=== PATIENT | male | born 1990 | race Caucasian/White ===

== ENCOUNTER 2017-01-08 21:51 | Emergency (ER) | payer OTHER ==
[~2017-01-08] VITALS: Ht 154.9 cm; Wt 68.0 kg
[~2017-01-08 21:51] MED LIST: AMPH15CA7 PO; AMPH20CA3 PO; NXM/40 PO
[2017-01-08 21:55] VITALS: TEMP 36.8; Ht 154.9 cm; Wt 68.0 kg
[2017-01-08] MEDS ORDERED: OPTIRAY 320 IV PRN (22:30)
[2017-01-08 22:40] LABS: BASO % 0.1 %; BASO ABS # 0.02 K/uL (0-0.2); COMPLETE YES; EOS % 0.3 %; HEMATOCRIT 46.6 % (42-52); IG% 0.3 %; LYMPH % 29.4 %; LYMPH ABS # 4.21 K/uL (1.2-3.4); MEAN CELL VOLUME 85.5 fL (80-100); MEAN CORPUSCULAR HEMOGLOBIN 28.8 pg (25-34); MEAN CORPUSCULAR HGB CONC 33.7 g/dl (32-36); MEAN PLATELET VOLUME 9.5 fL (7.4-10.4); MONO % 5.4 %; NEUT % 64.5 %; PLATELET COUNT 254 K/uL (130-400); RED BLOOD COUNT 5.45 M/uL (4.7-6.1); WHITE BLOOD COUNT 14.33 K/uL (4.8-10.8)
[2017-01-08] MEDS ORDERED: PRT/20 PO (22:41)
[2017-01-08 22:54] LABS: PROTHROMBIN TIME (PATIENT) 10.3 SECONDS (9.0-12.0)
[2017-01-08 22:55] LABS: MANUAL MICROSCOPIC REQUIRED? NO; REVIEW REQ? NO; URINE APPEARANCE CLEAR (CLEAR); URINE BILIRUBIN NEG (NEG); URINE COLOR YELLOW; URINE EPITHELIAL CELL AUTO 0-5 /lpf (0-5); URINE NITRITE NEG (NEG); URINE SPECIFIC GRAVITY 1.024 (1.000-1.030); UROBILINOGEN NEG (NEG); ZZUR CULT IF INDIC CLEAN CATCH NO
[2017-01-08 23:04] LABS: ALKALINE PHOSPHATASE 55 U/L (45-117); ALT/SGPT 28 U/L (12-78); AST/SGOT 26 U/L (15-37); BLOOD UREA NITROGEN 19 mg/dl (7-18); CALCIUM 8.9 mg/dl (8.5-10.1); CARBON DIOXIDE 27 mmol/L (21-32); CHLORIDE 106 mmol/L (98-107); GLUCOSE 87 mg/dl (70-99); SODIUM 140 mmol/L (136-145)
[2017-01-09 00:49] VITALS: BP 117/83; PULSE 86; O2SAT 97
--- NOTE | 2017-01-09 01:03 | EMERGENCY ROOM VISIT NOTE ---
History First contact with patient: 22:11 Chief Complaint: GI ASSESSMENT Stated Complaint: ABD PAIN,BLOOD IN STOOL History of Present Illness The patient is a 26 year old male who presents to the Emergency Room with complaints of blood in the stool for this past week that has gotten progressively worse. Patient states every time his bowel movement he has a couple drops of blood that has gotten progressive worse. Patient states today he had a small clot size of blood. No black stool. Patient states he's had some cramping to the left lower quadrant. Currently 2 out of 10, nothing makes it better or worse. It does not radiate. Patient is a homosexual and does have anal intercourse. Nothing recently. Patient denies penile pain, testicular pain, urinary symptoms, fever, chills, nausea, vomiting, diarrhea, rashes. Review of Systems See HPI for pertinent positives & negatives. A total of 10 systems reviewed and were otherwise negative. Past Medical/Surgical History None Social History Smoking Status: Current Some Day Smoker Alcohol Use: occasionally Drug Use: none Marital Status: in relationship Occupation Status: [employer] student Current/Historical Medications Scheduled Amphetamine-Dextroamphetamine 15MG (Adderall Xr 15MG), 15 MG PO Q2D Amphetamine-Dextroamphetamine 20MG (Adderall Xr 20MG), 20 MG PO Q2D Pantoprazole (Protonix), 20 MG PO BID Physical Exam Vital Signs Date Time Temp Pulse Resp B/P (MAP) Pulse Ox O2 Delivery O2 Flow Rate FiO2 01/09/17 00:49 86 117/83 97 01/08/17 23:23 82 18 111/75 98 Room Air 01/08/17 21:55 36.8 95 16 123/62 98 Room Air Physical Exam VITALS: Vitals are noted on the nurse's note and reviewed by myself. Vital signs stable. GENERAL: Pleasant male, in no acute distress, nondiaphoretic, well-developed well-nourished. SKIN: The skin was without rashes, erythema, edema, or bruising. There is no tenting of the skin. Capillary reflex less than 2 seconds. HEAD: Normocephalic atraumatic. EARS: External auditory canals clear, tympanic membranes pearly allan without erythema or effusion bilaterally. EYES: Pupils equal round and reactive to light and accommodation. Conjunctivae without injection, sclerae without icterus. Extraocular movements intact. NOSE: Patent, turbinates without inflammation or discharge. MOUTH: Mucous membranes moist. Pharynx without erythema or exudate. Uvula midline. Airway patent. Tongue does not deviate. NECK: Supple without nuchal rigidity. No lymphadenopathy. No thyromegaly. Cervical spine is nontender. No JVD. HEART: Regular rate and rhythm without murmurs gallops or rubs. LUNGS: Clear to auscultation bilaterally without wheezes, rales or rhonchi. No dullness to percussion. No retractions or accessory muscle use. ABDOMEN: Positive bowel sounds x 4. Normal tympanic percussion. Soft, tender to palpation left lower quadrant, no CVA tenderness, without masses or organomegaly. Lewis sign negative. No guarding or rebound tenderness. Rectal exam: Small hemorrhoid that is nonthrombosed at 7:00, no fissures or tears, bright red blood in the vault with no pain on rectal exam. Market Development Director present. MUSCULOSKELETAL: No muscle atrophy, erythema, or edema noted. NEURO: Patient was alert and oriented to person place and time. Normal sensation to light and sharp touch. No focal neurological deficits. Medical Decision & Procedures Laboratory Results 01/08/17 22:30 Red Blood Count 5.45, Mean Corpuscular Volume 85.5, Mean Corpuscular Hemoglobin 28.8, Mean Corpuscular Hemoglobin Concent 33.7, Mean Platelet Volume 9.5, Neutrophils (%) (Auto) 64.5, Lymphocytes (%) (Auto) 29.4, Monocytes (%) (Auto) 5.4, Eosinophils (%) (Auto) 0.3, Basophils (%) (Auto) 0.1, Neutrophils # (Auto) 9.24, Lymphocytes # (Auto) 4.21, Monocytes # (Auto) 0.77, Eosinophils # (Auto) 0.05, Basophils # (Auto) 0.02 01/08/17 22:30 Test 01/08/17 22:30 01/08/17 22:45 White Blood Count 14.33 K/uL (4.8-10.8) Red Blood Count 5.45 M/uL (4.7-6.1) Hemoglobin 15.7 g/dL (14.0-18.0) Hematocrit 46.6 % (42-52) Mean Corpuscular Volume 85.5 fL (80-100) Mean Corpuscular Hemoglobin 28.8 pg (25-34) Mean Corpuscular Hemoglobin Concent 33.7 g/dl (32-36) Platelet Count 254 K/uL (130-400) Mean Platelet Volume 9.5 fL (7.4-10.4) Neutrophils (%) (Auto) 64.5 % Lymphocytes (%) (Auto) 29.4 % Monocytes (%) (Auto) 5.4 % Eosinophils (%) (Auto) 0.3 % Basophils (%) (Auto) 0.1 % Neutrophils # (Auto) 9.24 K/uL (1.4-6.5) Lymphocytes # (Auto) 4.21 K/uL (1.2-3.4) Monocytes # (Auto) 0.77 K/uL (0.11-0.59) Eosinophils # (Auto) 0.05 K/uL (0-0.5) Basophils # (Auto) 0.02 K/uL (0-0.2) RDW Standard Deviation 41.0 fL (36.4-46.3) RDW Coefficient of Variation 13.1 % (11.5-14.5) Immature Granulocyte % (Auto) 0.3 % Immature Granulocyte # (Auto) 0.04 K/uL (0.00-0.02) Prothrombin Time 10.3 SECONDS (9.0-12.0) Prothromb Time International Ratio 1.0 (0.9-1.1) Activated Partial Thromboplast Time 25.6 SECONDS (21.0-31.0) Partial Thromboplastin Ratio 1.0 Anion Gap 7.0 mmol/L (3-11) Est Creatinine Clear Calc Drug Dose 82.8 ml/min Estimated GFR () 105.3 Estimated GFR (Non- 90.9 BUN/Creatinine Ratio 17.0 (10-20) Calcium Level 8.9 mg/dl (8.5-10.1) Total Bilirubin 0.7 mg/dl (0.2-1) Direct Bilirubin mg/dl (0-0.2) Aspartate Amino Transf (AST/SGOT) 26 U/L (15-37) Alanine Aminotransferase (ALT/SGPT) 28 U/L (12-78) Alkaline Phosphatase 55 U/L (45-117) Total Protein 7.5 gm/dl (6.4-8.2) Albumin 3.8 gm/dl (3.4-5.0) Chemistry Specimen Hemolysis Urine Color YELLOW Urine Appearance CLEAR (CLEAR) Urine pH 7.0 (4.5-7.5) Urine Specific [place] 1.024 (1.000-1.030) Urine Protein NEG (NEG) Urine Glucose (UA) NEG (NEG) Urine Ketones TRACE (NEG) Urine Occult Blood 1+ (NEG) Urine Nitrite NEG (NEG) Urine Bilirubin NEG (NEG) Urine Urobilinogen NEG (NEG) Urine Leukocyte Esterase NEG (NEG) Urine WBC (Auto) 0 /hpf (0-5) Urine RBC (Auto) 5-10 /hpf (0-4) Urine Hyaline Casts (Auto) 0 /lpf (0-5) Urine Epithelial Cells (Auto) 0-5 /lpf (0-5) Urine Bacteria (Auto) NEG (NEG) ED Course Prior records/ancillary studies reviewed. Triage Nursing notes reviewed. Additional history obtained from the friend. The patient's history was concerning for possible gastrointestinal bleeding. Differential diagnosis: Etiologies such as diverticulosis, rectal tear, AVM, coagulopathy, colitis, inflammatory bowel disease, malignancy, fissure, hemorrhoids, as well as others were entertained. Physical exam: As above. The patients vital signs were stable. ER treatment provided: Patient was observed On reassessment the patient felt better. Diagnostics interpreted by me: The labs revealed leukocytosis, stable H&H. Negative urine. Patient states he chronically has a mild leukocytosis. Imaging studies: CT ABDOMEN & PELVIS: No colitis. Appendix not identified. Heterogeneity with low attenuation area in the left side of the prostate. Radiologist: Carmelita Steinberg M.D. This appears to be consistent with rectal bleeding most likely from hemorrhoids. Patient was advised to follow-up with GI for further workup and also family care for his chronic mild leukocytosis. Patient was advised to avoid anal stimulation or anal intercourse until cleared by gastroenterology. He was advised to return to the ER immediately for heavy bleeding, black stool, fevers, worsening signs or symptoms or as needed. Patient was neurovascularly and neurologically intact. He did not have an acute abdomen on exam. He is well-appearing.. By the evaluation outlined above emergent etiologies such as esophageal perforation, peptic ulcer disease, variceal bleed, coagulopathy, gastritis, epistaxis, malignancy, inflammatory bowel disease, as well as others were deemed relatively unlikely. The pt informed about the findings as listed above. All questions were answered and pleased with the treatment. Return instructions were outlined and the patient was discharged in stable condition. Referral: The patient was referred to GI for follow-up in 2 to 3 days for a recheck of the current condition case reviewed with my Attending Medical Decision As above Medication Reconcilliation Current Medication List: was personally reviewed by me Blood Pressure Screening Patient's blood pressure: Normal blood pressure Impression Primary Impression: Rectal bleeding Departure Information Dispostion Home / Self-Care Condition GOOD Referrals Casandra Briggs, DO Forms HOME CARE DOCUMENTATION FORM, IMPORTANT VISIT INFORMATION Patient Instructions Bleeding Rectal, My Parabel Additional Instructions No rectal intercourse or anal stimulation until cleared by gastroenterology. Avoid straining when you go to the bathroom. Recommend no alcohol or tobacco use until cleared by gastroenterology. Rest and drink plenty of fluids as tolerated. Continue current medications. Avoid strenuous activities and anything that worsens your pain. Resume normal activities once your symptoms resolve. Return to the ER immediately for worsening or persistent rectal bleeding, black or heavy blood in the stool, abdominal pain, vomiting, fevers, chest pains, difficulty breathing, worsening of your condition, or as needed. Follow up with gastroenterology in 2-3 days for a recheck of your current condition. Call in the morning for an appointment.
--- NOTE | 2017-01-09 06:41 | DIAGNOSTIC IMAGING REPORT ---
CT ABD/PELVIS IV CONTRAST ONLY CLINICAL HISTORY: Left lower quadrant abdominal pain. Rectal bleeding. Anal intercourse. COMPARISON STUDY: None. TECHNIQUE: Following the IV administration of 91 mL of Optiray-320, CT scan of the abdomen and pelvis was performed from the lung bases to the proximal femurs. Images are reviewed in the axial, sagittal, and coronal planes. IV contrast was administered without complication. A dose lowering technique was utilized adhering to the principles of ALARA. CT DOSE: 266.10 mGy.cm FINDINGS: Lower chest: The heart is normal in size and configuration, without pericardial effusion. The lung bases and pleural spaces are clear. Liver: The contrast-enhanced liver is normal in size, contour, and attenuation. There is no intrahepatic biliary ductal dilatation. The hepatic veins and portal veins are patent. Gallbladder: Unremarkable. Spleen: Normal in size and attenuation. Pancreas: Unremarkable. Adrenal glands: Unremarkable. Kidneys: There is symmetric renal cortical enhancement. The kidneys are normal in size without hydronephrosis. Bowel: There are no transition zones indicate bowel obstruction. There is no evidence of acute diverticulitis. The appendix is not visualized with certainty. There are however no findings to indicate acute appendicitis. Peritoneum: There is no intraperitoneal free air or abdominal ascites. Vasculature: The abdominal aorta is normal in course and caliber. Adenopathy: None. Pelvic viscera: There is an area of diminished attenuation within the left side the prostate. This is nonspecific. A prostatitis could appear similar. Skeletal structures: No destructive osseous lesions are seen. IMPRESSION: 1. No evidence of bowel obstruction. No evidence of free air 2. Focus of diminished attenuation within the left aspect of the prostate. Clinical correlation in regards to prostatitis is recommended. 3. No evidence of acute diverticulitis. No evidence of acute appendicitis. Electronically signed by: Yuniel Mcgowan M.D. 01/09/2017 6:40 AM Dictated Date/Time: 01/09/2017 6:36 AM
== END 2017-01-09 00:51 | disposition home or self-care (01) ==
LOC: C.EDB 21:52 → C.EDA 01-09 00:51
DX: K62.5 Hemorrhage of anus and rectum (principal); F17.200 Nicotine dependence, unspecified, uncomplicated

== ENCOUNTER → 2017-06-24 | Day surgery (SDC) | payer OTHER ==
[2017-06-10 13:32] VITALS: Ht 154.9 cm; Wt 69.1 kg
[~2017-06-24] VITALS: Ht 154.9 cm; Wt 69.1 kg
[~2017-06-24] MED LIST changes: +ESOM20CA PO; +LIDOCAINE HCL 2% 2 ML VIAL (20MG/ML) ONE; +MIDAZOLAM HCL 1 MG/ML 2ML VIAL ONE; -NXM/40 PO; +PROPOFOL IV EMULSION 10 MG/ML 20 ML VIAL IV ONE; +SIME180C6 PO; +SODIUM CHLORIDE 0.9% 500ML 500 ML IV ONE; +VNTHFA/IN INH
[2017-06-24 12:50] VITALS: TEMP 36.6
--- NOTE | 2017-06-24 13:02 | Endo History and Physical ---
History & Physical Date of Service: Jun 24, 2017. Chief Complaint: rectal bleeding Referring Physician: [facility] History of Present Illness 27 yo male who presents for colonoscopy secondary to rectal bleeding. Past Surgical History Hx Cardiac Surgery: No Hx Internal Defibrillator: No Hx Pacemaker: No Hx Abdominal Surgery: Yes (APPY) Hx of Implantable Prosthesis: No Hx Post-Op Nausea and Vomiting: No Hx Cancer Surgery: No Hx Thoracic Surgery: No Hx Orthopedic: No Hx Urinary Tract Surgery: No Family History Colon CA Social History Smoking Status: Former Smoker Hx Substance Use: Yes (LAST MARIJUANA USE 1.5 MONTHS AGO) Hx Alcohol Use: No Allergies Coded Allergies: No Known Allergies (Verified , 06/24/17) Current Medications Reported Home Medications Medications Dose Route/Sig Max Daily Dose Days Date Category Dose Instructions Ventolin Hfa (Albuterol) 200 Puffs/18666 Mcg Aers 2-4 Puffs INH Q6H PRN 06/10/17 Reported Phazyme (Simethicone) 180 Mg Cap 1 Cap PO QPM 06/10/17 Reported Nexium (Esomeprazole Magnesium) 20 Mg Capcr 20 Mg PO QPM 06/10/17 Reported Adderall Xr 15MG (Amphetamine-Dextroamphetamine 15MG) 1 Cap Cap 15 Mg PO DAILY 10/13/15 Reported ON HOLD FOR 1 MONTH Adderall Xr 20MG (Amphetamine-Dextroamphetamine 20MG) 1 Cap Cap 20 Mg PO DAILY 10/13/15 Reported ON HOLD FOR 1 MONTH Vital Signs Weight (Kilograms): 69.09 Height (Feet): 5 Height (Inches): 1 Date Time Temp Pulse Resp B/P (MAP) Pulse Ox O2 Delivery O2 Flow Rate FiO2 06/24/17 12:50 36.6 81 18 129/64 (85) 100 Room Air Physical Exam General Appearance: WD/WN, no apparent distress Respiratory/Chest: Auscultation: breath sounds normal Cardiovascular: Heart Auscultation: RRR Abdomen: Bowel Sounds: normal Inspection & Palpation: soft, non-distended, no tenderness, guarding & rebound Assessment and Plan Assessment: 27 yo male who presents for colonoscopy secondary to rectal bleeding. Plan: Proceed with colonoscopy.
--- NOTE | 2017-06-24 13:27 | GI REPORT ---
Procedure Date: 06/24/2017 1:00 PM Procedure: Colonoscopy Indications: Rectal bleeding Medicines: Monitored Anesthesia Care Complications: No immediate complications. Estimated Blood Loss: Estimated blood loss: none. Procedure: Pre-Anesthesia Assessment: - Prior to the procedure, a History and Physical was performed, and patient medications and allergies were reviewed. The patient's tolerance of previous anesthesia was also reviewed. The risks and benefits of the procedure and the sedation options and risks were discussed with the patient. All questions were answered, and informed consent was obtained. Prior Anticoagulants: The patient has taken no previous anticoagulant or antiplatelet agents. ASA Grade Assessment: II - A patient with mild systemic disease. After reviewing the risks and benefits, the patient was deemed in satisfactory condition to undergo the procedure. After I obtained informed consent, the scope was passed under direct vision. Throughout the procedure, the patient's blood pressure, pulse, and oxygen saturations were monitored continuously. The scope was introduced through the anus and advanced to the terminal ileum. The colonoscopy was performed without difficulty. The patient tolerated the procedure well. The quality of the bowel preparation was good. The terminal ileum, ileocecal valve, appendiceal orifice, and rectum were photographed. Findings: The perianal and digital rectal examinations were normal. Localized inflammation, mild in severity and characterized by aphthous ulcerations was found in the terminal ileum. Biopsies were taken with a cold forceps for histology. Non-bleeding internal hemorrhoids were found during retroflexion. The hemorrhoids were small. Impression: - Ileitis. Biopsied. - Non-bleeding internal hemorrhoids. Recommendation: - Resume previous diet. - Continue present medications. - Await pathology results. - Return to GI office as previously scheduled. Tarun Molina DO 06/24/2017 1:26:35 PM This report has been signed electronically. Note Initiated On: 06/24/2017 1:00 PM I attest to the content of the Intraoperative Record and orders documented therein, exceptions below
--- NOTE | 2017-06-24 13:27 | Discharge Instructions ---
Endoscopy Patient Instructions Date / Procedure(s) Performed Jun 24, 2017. Colonoscopy Allergy Information Coded Allergies: No Known Allergies (Verified , 06/24/17) Discharge Date / Findings Jun 24, 2017. Terminal ileitis s/p biopsies Internal hemorrhoids Medication Instructions Stopped Medication(s): stopped Adderall week ago OK to resume all medications today as prescribed Reported Home Medications Medications Dose Route/Sig Max Daily Dose Days Date Category Dose Instructions Ventolin Hfa (Albuterol) 200 Puffs/83612 Mcg Aers 2-4 Puffs INH Q6H PRN 06/10/17 Reported Phazyme (Simethicone) 180 Mg Cap 1 Cap PO QPM 06/10/17 Reported Nexium (Esomeprazole Magnesium) 20 Mg Capcr 20 Mg PO QPM 06/10/17 Reported Adderall Xr 15MG (Amphetamine-Dextroamphetamine 15MG) 1 Cap Cap 15 Mg PO DAILY 10/13/15 Reported ON HOLD FOR 1 MONTH Adderall Xr 20MG (Amphetamine-Dextroamphetamine 20MG) 1 Cap Cap 20 Mg PO DAILY 10/13/15 Reported ON HOLD FOR 1 MONTH Provider Instructions Activity Restrictions - No exercising or heavy lifting for 24 hours. - Do not drink alcohol the day of the procedure. - Do not drive a car or operate machinery until the day after the procedure. - Do not make any important decisions or sign important papers in 24 hours after the procedure. Following Day: - Return to full activity which may include returning to work/school. Diet Start your diet with liquids and light foods (jello, soup, juice, toast). Then eat your usual diet if not nauseated. Treatment For Common After Affects For mild abdominal pain, bloating, or excessive gas: - Rest - Eat lightly - Lie on right side Follow-Up Information Follow-up with [facility] as scheduled Anesthesia Information What You Should Know You have had a procedure that required some medicine to reduce anxiety and discomfort. This treatment is called moderate sedation. After receiving the treatment, you may be sleepy, but you will be able to breathe on your own. The effects of the treatment may last for several hours. Follow these instructions along with Activity/Diet recommendations noted above: * Do NOT do anything where dizziness or clumsiness would be dangerous. * Rest quietly at home today, then you can be up and about tomorrow. * Have a responsible person stay with you the rest of today. * You may have had an I.V. today. If so, you may take the dressing off later today. Recommendations Call your doctor if: * Trouble breathing * Continuous vomiting for more than 24 hours * Temperature above 101 degrees * Severe abdominal pain or bloating * Pain not relieved by pain medicine ordered * There is increased drainage or redness from any incision * A large amount of rectal bleeding greater than 2-3 tablespoons. (If you had a polyp/s removed or have hemorrhoids, a small amount of blood - from the rectum is to be expected.) * You have any unanswered questions or concerns. IN THE EVENT OF A SERIOUS EMERGENCY, GO TO THE NEAREST EMERGENCY ROOM Your discharge instructions were prepared by provider Tarun Molina. Patient Instructions Signature Page Abdirahman Valencia Patient (or Guardian) Signature/Date: I have read and understand the instructions given to me by my caregivers. Caregiver/RN/Doctor Signature/Date: The above-named patient and/or guardian has received patient instructions on this date. + Original Patient Signature Page (only) stays with chart. Please make copy for patient.
[2017-06-24 13:53] VITALS: BP 105/67; PULSE 73; O2SAT 97
--- NOTE | 2017-06-24 14:09 | Anesthesiology Progress Note ---
Anesthesia Post Op Note Date & Time Jun 24, 2017 at 14:09 Vital Signs Pain Intensity: 0 Vital Signs Past 12 Hours Date Time Temp Pulse Resp B/P (MAP) Pulse Ox O2 Delivery O2 Flow Rate FiO2 06/24/17 13:53 73 18 105/67 (80) 97 Room Air 06/24/17 13:45 68 18 109/67 (81) 97 Room Air 06/24/17 13:35 78 18 109/54 (72) 97 Room Air 06/24/17 13:30 63 18 89/46 (60) 100 Room Air 06/24/17 13:25 66 18 86/61 (69) 100 Room Air 06/24/17 12:50 36.6 81 18 129/64 (85) 100 Room Air Notes Mental Status: alert / awake / arousable, participated in evaluation Pt Amnestic to Procedure: Yes Nausea / Vomiting: adequately controlled Pain: adequately controlled Airway Patency, RR, SpO2: stable & adequate BP & HR: stable & adequate Hydration State: stable & adequate Anesthetic Complications: no major complications apparent
== END | disposition home or self-care (01) ==
LOC: C.GI 12:34
PROVIDERS: ATTEND Internal Medicine
DX: K62.5 Hemorrhage of anus and rectum (principal); K50.00 Crohn's disease of small intestine without complications; K64.8 Other hemorrhoids; J45.909 Unspecified asthma, uncomplicated; K21.9 Gastro-esophageal reflux disease without esophagitis; F90.9 Attention-deficit hyperactivity disorder, unspecified type; Z90.49 Acquired absence of other specified parts of digestive tract; Z87.891 Personal history of nicotine dependence; Z80.0 Family history of malignant neoplasm of digestive organs

== ENCOUNTER 2017-07-11 16:30 | Emergency (ER) | payer OTHER ==
[~2017-07-11] VITALS: Ht 154.9 cm; Wt 68.9 kg
[~2017-07-11 16:30] MED LIST changes: -LIDOCAINE HCL 2% 2 ML VIAL (20MG/ML) ONE; -MIDAZOLAM HCL 1 MG/ML 2ML VIAL ONE; -PROPOFOL IV EMULSION 10 MG/ML 20 ML VIAL IV ONE; -SODIUM CHLORIDE 0.9% 500ML 500 ML IV ONE
[2017-07-11 16:32] VITALS: TEMP 36.8; Ht 154.9 cm; Wt 68.9 kg
--- NOTE | 2017-07-11 16:43 | EMERGENCY ROOM VISIT NOTE ---
History Report prepared by Tal: Leonor Gutierrez Under the Supervision of: Dr. Issac John M.D. 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 He also reports he has left arm tingling. He describes it as "not sharp" and stress makes it worse. Pain is mild. He notes he has coughed up mucus but denies traveling anywhere recently, recent trauma, or LOC. He reports not needing anything for pain right now. 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 Negative recent travel or trauma. Review of Systems See HPI for pertinent positives and negatives. A total of ten systems were reviewed and were otherwise negative. Family History Patient reports no known family medical history. Social History Smoking Status: Former Smoker Alcohol Use: occasionally Drug Use: none Marital Status: in relationship Occupation Status: [employer] student Current/Historical Medications Scheduled Dexlansoprazole (Dexilant), 30 MG PO DAILY Simethicone (Phazyme), 1 CAP PO PRN Scheduled PRN Albuterol Hfa (Ventolin Hfa), 2 PUFFS INH Q6H PRN for Shortness of Breath Guaifenesin Ext Rel (Mucinex Ext Rel), 600 MG PO Q12 PRN for CONGESTION Lorazepam (Ativan), 0.5 MG PO Q6H PRN for Anxiety Pseudoephedrine Hcl (Sudafed Nasal Decongestan), 1 TAB PO TID PRN for PRN UD Allergies Coded Allergies: Prednisone (Verified Adverse Reaction, Severe, DIZZY, SHAKY, DISORIENTED, 07/11/17) Physical Exam Vital Signs Date Time Temp Pulse Resp B/P (MAP) Pulse Ox O2 Delivery O2 Flow Rate FiO2 07/11/17 19:25 70 18 113/65 96 07/11/17 18:17 86 18 106/68 95 Room Air 07/11/17 16:48 98 Room Air 07/11/17 16:32 36.8 90 17 116/69 98 Room Air Physical Exam Physical Exam GENERAL: He is oriented to person, place, and time. He appears well-developed and well-nourished. He does not appear distressed. ____ HENT: Exam performed. Head: Normocephalic and atraumatic. Right Ear: External ear normal. No mastoid tenderness. Left Ear: External ear normal. No mastoid tenderness. Mouth/Throat: The oropharynx is clear and moist. No trismus in the jaw. No dental abscesses or uvula swelling. No oropharyngeal exudate or tonsillar abscesses. ____ EYES: Conjunctivae and EOM are normal. Pupils are equal, round, and reactive to light. Right eye exhibits no discharge. Left eye exhibits no discharge. No scleral icterus. ____ NECK: Normal range of motion. Neck supple. No JVD present. No spinous process tenderness present. No carotid bruit present. No rigidity. No tracheal deviation and normal range of motion present. No Brudzinski's sign and no Kernig 's sign noted. ____ CV: Normal rate, regular rhythm, normal heart sounds and intact distal pulses. There is no peripheral edema. Palpable radial pulses bue. ____ PULM/CHEST: Effort normal and breath sounds normal. No respiratory distress. No stridor. He has no wheezes. He has no rales. Chest Wall: He exhibits no tenderness. ____ ABD: The abdomen is soft. Bowel sounds are normal. He has no distension. No mass is present. There is no tenderness. There is no rebound, no guarding, no Lewis's sign and no tenderness at McBurney's point. Rovsig negative MUSC/SKEL: Normal range of motion. There is no peripheral edema, tenderness or deformity. LYMPH: No cervical adenopathy. ____ NEURO: He is alert and oriented to person, place, and time. He has normal strength. No cranial nerve deficit or sensory deficit. Coordination and gait normal. GCS eye subscore is 4. GCS verbal subscore is 5. GCS motor subscore is 6. Cerebellar tests wnl. ____ SKIN: Skin is warm and dry. He is not diaphoretic. ____ PSYCH: He has a normal mood and affect. His behavior is normal. Judgment and thought content normal. ____ Medical Decision & Procedures ER Provider Diagnostic Interpretation: Radiology results as stated below per my review and radiologist interpretation: CHEST 2 VIEWS ROUTINE HISTORY: Atypical chest pain. COMPARISON: None. FINDINGS: The lungs are clear. Cardiac silhouette is normal in size. No pleural effusions. No pneumothorax. IMPRESSION: No acute process. Electronically signed by: Boo Montano M.D. 07/11/2017 5:41 PM Dictated Date/Time: 07/11/2017 5:40 PM Laboratory Results 07/11/17 18:30 Red Blood Count 5.59, Mean Corpuscular Volume 83.5, Mean Corpuscular Hemoglobin 29.9, Mean Corpuscular Hemoglobin Concent 35.8, Mean Platelet Volume 10.0, Neutrophils (%) (Auto) 60.6, Lymphocytes (%) (Auto) 31.5, Monocytes (%) (Auto) 6.6, Eosinophils (%) (Auto) 0.9, Basophils (%) (Auto) 0.2, Neutrophils # (Auto) 5.67, Lymphocytes # (Auto) 2.95, Monocytes # (Auto) 0.62, Eosinophils # (Auto) 0.08, Basophils # (Auto) 0.02 07/11/17 18:30 Test 07/11/17 18:30 White Blood Count 9.36 K/uL (4.8-10.8) Red Blood Count 5.59 M/uL (4.7-6.1) Hemoglobin 16.7 g/dL (14.0-18.0) Hematocrit 46.7 % (42-52) Mean Corpuscular Volume 83.5 fL (80-100) Mean Corpuscular Hemoglobin 29.9 pg (25-34) Mean Corpuscular Hemoglobin Concent 35.8 g/dl (32-36) Platelet Count 239 K/uL (130-400) Mean Platelet Volume 10.0 fL (7.4-10.4) Neutrophils (%) (Auto) 60.6 % Lymphocytes (%) (Auto) 31.5 % Monocytes (%) (Auto) 6.6 % Eosinophils (%) (Auto) 0.9 % Basophils (%) (Auto) 0.2 % Neutrophils # (Auto) 5.67 K/uL (1.4-6.5) Lymphocytes # (Auto) 2.95 K/uL (1.2-3.4) Monocytes # (Auto) 0.62 K/uL (0.11-0.59) Eosinophils # (Auto) 0.08 K/uL (0-0.5) Basophils # (Auto) 0.02 K/uL (0-0.2) RDW Standard Deviation 40.2 fL (36.4-46.3) RDW Coefficient of Variation 13.3 % (11.5-14.5) Immature Granulocyte % (Auto) 0.2 % Immature Granulocyte # (Auto) 0.02 K/uL (0.00-0.02) D-Dimer < 190 ug/L FEU (0-500) Anion Gap 8.0 mmol/L (3-11) Est Creatinine Clear Calc Drug Dose 79.7 ml/min Estimated GFR () 100.2 Estimated GFR (Non- 86.4 BUN/Creatinine Ratio 10.4 (10-20) Calcium Level 9.4 mg/dl (8.5-10.1) Total Bilirubin 1.5 mg/dl (0.2-1) Direct Bilirubin 0.2 mg/dl (0-0.2) Aspartate Amino Transf (AST/SGOT) 20 U/L (15-37) Alanine Aminotransferase (ALT/SGPT) 32 U/L (12-78) Alkaline Phosphatase 59 U/L (45-117) Total Protein 7.7 gm/dl (6.4-8.2) Albumin 4.1 gm/dl (3.4-5.0) Lipase 171 U/L (73-393) Laboratory results reviewed by me ECG Per My Interpretation Indication: chest pain Rate (beats per minute): 83 Rhythm: other (Sinus arrhythmia) Findings: other (CO, QRS, and QTC within normal limits, no ST elevation or depression) ED Course 164: The patient was evaluated in room C2. A complete history and physical exam was performed. 0: Vital signs are stable. EKG and chest x-ray within normal limits. He continues to have pain on inspiration with deep breaths. He also reports having intermittent epigastric pain. Repeat lung exam and abdominal exam within normal limits. Will repeat D-dimer. 1917: Vitals are stable. Repeat heart, lungs, and abdominal exam within normal limits. Labs and imaging within normal limits. DISCHARGE - Plan of care discussed with patient and questions answered. The patient was given both verbal and printed discharge instructions. The patient verbalized understanding and ability to comply. The patient is to seek outpatient follow up as noted in the discharge instructions. The patient verbalized understanding and ability to comply. The patient is discharged in stable condition. The patient was instructed to return for worsening symptoms. Medical Decision 1899: Vital signs are stable. EKG and chest x-ray within normal limits. He continues to have pain on inspiration with deep breaths. He also reports having intermittent epigastric pain. Repeat lung exam and abdominal exam within normal limits. Will repeat D-dimer. 1917: Vitals are stable. Repeat heart, lungs, and abdominal exam within normal limits. Labs and imaging within normal limits. DISCHARGE - Plan of care discussed with patient and questions answered. The patient was given both verbal and printed discharge instructions. The patient verbalized understanding and ability to comply. The patient is to seek outpatient follow up as noted in the discharge instructions. The patient verbalized understanding and ability to comply. The patient is discharged in stable condition. The patient was instructed to return for worsening symptoms. Medication Reconcilliation Current Medication List: was personally reviewed by me Blood Pressure Screening Patient's blood pressure: Normal blood pressure Blood pressure disposition: Did not require urgent referral Impression Primary Impression: Chest pain Scribe Attestation The scribe's documentation has been prepared under my direction and personally reviewed by me in its entirety. I confirm that the note above accurately reflects all work, treatment, procedures, and medical decision making performed by me. The chart was completed utilizing [employer] Speech voice recognition software. Grammatical errors, random word insertions, pronoun errors, and incomplete sentences are an occasional consequence of this system due to software limitations, ambient noise, and hardware issues. Any formal questions or concerns about the content, text, or information contained within the body of this dictation should be directly addressed to the physician for clarification. Departure Information Dispostion Home / Self-Care Referrals Gordon Armendariz PA-C (PCP) Forms IMPORTANT VISIT INFORMATION Patient Instructions My [facility] Problem Qualifiers Primary Impression: Chest pain Chest pain type: unspecified Qualified Codes: R07.9 - Chest pain, unspecified
[2017-07-11] MEDS ORDERED: LORA-741 PO (17:20)
[2017-07-11] MEDS ORDERED: PSEU30TA3 PO (17:20)
[2017-07-11] MEDS ORDERED: DEXL30CA5 PO (17:20)
[2017-07-11] MEDS ORDERED: GUAI1TAB55 PO (17:20)
--- NOTE | 2017-07-11 17:43 | DIAGNOSTIC IMAGING REPORT ---
CHEST 2 VIEWS ROUTINE HISTORY: Atypical chest pain. COMPARISON: None. FINDINGS: The lungs are clear. Cardiac silhouette is normal in size. No pleural effusions. No pneumothorax. IMPRESSION: No acute process. Electronically signed by: Boo Montano M.D. 07/11/2017 5:41 PM Dictated Date/Time: 07/11/2017 5:40 PM
[2017-07-11 18:43] LABS: BASO % 0.2 %; BASO ABS # 0.02 K/uL (0-0.2); EOS % 0.9 %; EOS ABS # 0.08 K/uL (0-0.5); HEMATOCRIT 46.7 % (42-52); HEMOGLOBIN 16.7 g/dL (14.0-18.0); IG# 0.02 K/uL (0.00-0.02); LYMPH % 31.5 %; LYMPH ABS # 2.95 K/uL (1.2-3.4); MEAN CELL VOLUME 83.5 fL (80-100); MEAN CORPUSCULAR HEMOGLOBIN 29.9 pg (25-34); MEAN CORPUSCULAR HGB CONC 35.8 g/dl (32-36); MONO % 6.6 %; MONO ABS # 0.62 K/uL (0.11-0.59); NEUT % 60.6 %; NEUT ABS # 5.67 K/uL (1.4-6.5); PLATELET COUNT 239 K/uL (130-400); RED CELL DISTRIBUTION WIDTH CV 13.3 % (11.5-14.5); RED CELL DISTRIBUTION WIDTH SD 40.2 fL (36.4-46.3); WHITE BLOOD COUNT 9.36 K/uL (4.8-10.8)
[2017-07-11 19:00] LABS: ALBUMIN 4.1 gm/dl (3.4-5.0); CALCIUM 9.4 mg/dl (8.5-10.1); CREATININE 1.14 mg/dl (0.60-1.40)
[2017-07-11 19:03] LABS: TOTAL PROTEIN 7.7 gm/dl (6.4-8.2)
[2017-07-11 19:25] VITALS: BP 113/65; PULSE 70; O2SAT 96
== END 2017-07-11 19:26 | disposition home or self-care (01) ==
LOC: C.EDB 16:32
DX: R07.1 Chest pain on breathing (principal); R10.13 Epigastric pain; Z87.891 Personal history of nicotine dependence; Z88.8 Allergy status to other drugs, medicaments and biological substances

== ENCOUNTER 2017-07-26 01:27 | Emergency (ER) | payer OTHER ==
[~2017-07-26] VITALS: Ht 154.9 cm; Wt 70.3 kg
[~2017-07-26 01:27] MED LIST changes: -AMPH15CA7 PO; -AMPH20CA3 PO; +DEXL30CA5 PO; -ESOM20CA PO; +GUAI1TAB55 PO; +LORA-741 PO; +PSEU30TA3 PO
[2017-07-26 01:33] VITALS: TEMP 36.2; Ht 154.9 cm; Wt 70.3 kg
--- NOTE | 2017-07-26 02:07 | EMERGENCY ROOM VISIT NOTE ---
History Report prepared by Tal: Viki Friedman Under the Supervision of: Dr. Julieta Bone D.O. First contact with patient: 01:36 Chief Complaint: ABDOMINAL PAIN Stated Complaint: SEVERE ABDOMINAL PAIN History of Present Illness The patient is a 27 year old male who presents to the Emergency Room with complaints of constant sharp left side abdominal pain since last night. He notes that he has had the abdominal pain intermittent for two weeks, though it became constant and worsened last night He reports having constipation for one week. He notes passing small amounts of stool tonight and two days ago. He states that he normally has regular stools. He states that he recently had a colonoscopy June 24, 2017 for rectal bleeding. He states they found a small laceration in his colon and hemorrhoids. He was prescribed steroid capsules, though his PCP told him to stop taking the steroids because he is allergic to prednisone. He denies any recurrent rectal bleeding. He reports a mild loss of appetite at dinner tonight. He reports eating a chicken gyro with onions and no sauce. He reports nausea, though denies any vomiting. He denies any history of similar symptoms or abdominal surgeries. He states that he is urinating as normal. He denies any fevers, chills. cough, sore throat, shortness of breath, leg cramping, or leg swelling. 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 He denies drinking alcohol in two months. Source of History: patient Onset: since last night Position: abdomen Quality: sharp Timing: constant Associated Symptoms: + nausea, No fevers, No chills, No sorethroat, No cough , No SOB, No vomiting, No urinary symptoms Note: Notes constipation and loss of appetite. Denies leg cramping or leg swelling. Review of Systems See HPI for pertinent positives & negatives. A total of 10 systems reviewed and were otherwise negative. 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: [employer] student Current/Historical Medications Scheduled Dexlansoprazole (Dexilant), 30 MG PO DAILY Scheduled PRN Albuterol Hfa (Ventolin Hfa), 2 PUFFS INH Q6H PRN for Shortness of Breath Lorazepam (Ativan), 0.5 MG PO Q6H PRN for Anxiety Allergies Coded Allergies: Prednisone (Verified Adverse Reaction, Severe, DIZZY, SHAKY, DISORIENTED, 07/11/17) Physical Exam Vital Signs Date Time Temp Pulse Resp B/P (MAP) Pulse Ox O2 Delivery O2 Flow Rate FiO2 07/26/17 04:02 80 16 106/70 97 Room Air 07/26/17 01:33 36.2 69 18 118/79 99 Room Air Physical Exam HEENT: Head - normocephalic and atraumatic Pupils are equal, round, and reactive to light. Extraocular eye muscles are intact, and sclera are anicteric. Nose - moist nasal mucosa without discharge. Mouth - moist buccal mucosa. Oropharynx is nonerythematous and there is no tonsillar exudate or edema noted. Neck: Supple; no JVD, nuchal rigidity, cervical lymphadenopathy. Heart: Regular rate and rhythm. There is a normal S1 and S2 with no murmurs, clicks, or gallops appreciated. Lungs: Clear to auscultation bilaterally with no wheezes, rales, or rhonchi. Abdomen: Soft, epigastric and LUQ pain with palpation, nondistended, with good bowel sounds. There are no palpable pulsatile masses or hepatosplenomegaly. There is no guarding, rigidity, or rebound noted. Extremities: No evidence of cyanosis, clubbing, or edema. There are easily palpable peripheral pulses. Skin: warm and dry with good turgor and no rashes. Medical Decision & Procedures ER Provider Diagnostic Interpretation: Radiology results as stated below per my review and interpretation: CHEST/ABDOMEN XR: Moderate colonic fecal retention, large amount of stool in rectum. No obvious signs of obstruction. Laboratory Results 07/26/17 02:01 Red Blood Count 5.28, Mean Corpuscular Volume 84.1, Mean Corpuscular Hemoglobin 29.0, Mean Corpuscular Hemoglobin Concent 34.5, Mean Platelet Volume 9.3, Neutrophils (%) (Auto) 52.0, Lymphocytes (%) (Auto) 40.8, Monocytes (%) (Auto) 5.9, Eosinophils (%) (Auto) 1.1, Basophils (%) (Auto) 0.1, Neutrophils # (Auto) 4.17, Lymphocytes # (Auto) 3.28, Monocytes # (Auto) 0.47, Eosinophils # (Auto) 0.09, Basophils # (Auto) 0.01 07/26/17 02:01 Test 07/26/17 02:01 07/26/17 03:00 White Blood Count 8.03 K/uL (4.8-10.8) Red Blood Count 5.28 M/uL (4.7-6.1) Hemoglobin 15.3 g/dL (14.0-18.0) Hematocrit 44.4 % (42-52) Mean Corpuscular Volume 84.1 fL (80-100) Mean Corpuscular Hemoglobin 29.0 pg (25-34) Mean Corpuscular Hemoglobin Concent 34.5 g/dl (32-36) Platelet Count 211 K/uL (130-400) Mean Platelet Volume 9.3 fL (7.4-10.4) Neutrophils (%) (Auto) 52.0 % Lymphocytes (%) (Auto) 40.8 % Monocytes (%) (Auto) 5.9 % Eosinophils (%) (Auto) 1.1 % Basophils (%) (Auto) 0.1 % Neutrophils # (Auto) 4.17 K/uL (1.4-6.5) Lymphocytes # (Auto) 3.28 K/uL (1.2-3.4) Monocytes # (Auto) 0.47 K/uL (0.11-0.59) Eosinophils # (Auto) 0.09 K/uL (0-0.5) Basophils # (Auto) 0.01 K/uL (0-0.2) RDW Standard Deviation 40.6 fL (36.4-46.3) RDW Coefficient of Variation 13.3 % (11.5-14.5) Immature Granulocyte % (Auto) 0.1 % Immature Granulocyte # (Auto) 0.01 K/uL (0.00-0.02) Anion Gap 5.0 mmol/L (3-11) Est Creatinine Clear Calc Drug Dose 85.7 ml/min Estimated GFR () 108.1 Estimated GFR (Non- 93.3 BUN/Creatinine Ratio 12.7 (10-20) Calcium Level 8.8 mg/dl (8.5-10.1) Total Bilirubin 1.2 mg/dl (0.2-1) Direct Bilirubin 0.2 mg/dl (0-0.2) Aspartate Amino Transf (AST/SGOT) 17 U/L (15-37) Alanine Aminotransferase (ALT/SGPT) 22 U/L (12-78) Alkaline Phosphatase 58 U/L (45-117) Total Protein 7.3 gm/dl (6.4-8.2) Albumin 3.8 gm/dl (3.4-5.0) Lipase 179 U/L (73-393) Urine Color YELLOW Urine Appearance CLEAR (CLEAR) Urine pH 6.0 (4.5-7.5) Urine Specific [place] 1.016 (1.000-1.030) Urine Protein NEG (NEG) Urine Glucose (UA) NEG (NEG) Urine Ketones NEG (NEG) Urine Occult Blood TRACE (NEG) Urine Nitrite NEG (NEG) Urine Bilirubin NEG (NEG) Urine Urobilinogen NEG (NEG) Urine Leukocyte Esterase NEG (NEG) Urine WBC (Auto) 0 /hpf (0-5) Urine RBC (Auto) 0-4 /hpf (0-4) Urine Hyaline Casts (Auto) 0 /lpf (0-5) Urine Epithelial Cells (Auto) 0-5 /lpf (0-5) Urine Bacteria (Auto) NEG (NEG) Laboratory results per my review. Procedure Soapsuds enema ED Course 0143: Past medical records reviewed. The patient was evaluated in room B9. A complete history and physical exam was performed. Laboratory studies were drawn as above. 0240: I reassessed the patient at this time. He will have a soap suds enema. He went to the bathroom though could not move his bowels. 0350: I reassessed the patient at this time. He had a significant bowel movement and he feels much better. I discussed the results and treatment plan with the patient. I answered all pertaining questions that he had. He expressed understanding and verbalized agreement. The patient will be discharged home. Medical Decision The patient is a 27 year old male who presents to the ED with left side abdominal pain. Differential diagnosis includes gastritis, pancreatitis, constipation, and SBO. Lab results showed: Normal H&H. No leukocytosis. Normal Glucose. Normal lipase. Normal renal function. Normal LFTs. Urine: trace blood. This is a 27-year-old male patient who presents to the emergency department with lower abdominal pain. He has been unable to move his bowels significantly for the past week. Obstruction series was obtained which showed a moderate amount of stool within the distal colon and rectum. A soapsuds enema produced a significant bowel movement and the patient feels much better. He was encouraged to take plenty of clear liquids and avoid dairy over the next 3-5 days. He can use MiraLAX as necessary. Medication Reconcilliation Current Medication List: was personally reviewed by me Blood Pressure Screening Patient's blood pressure: Normal blood pressure Impression Primary Impression: Constipation Scribe Attestation The scribe's documentation has been prepared under my direction and personally reviewed by me in its entirety. I confirm that the note above accurately reflects all work, treatment, procedures, and medical decision making performed by me. Departure Information Dispostion Home / Self-Care Referrals Gordon Armendariz PA-C (PCP) Forms HOME CARE DOCUMENTATION FORM, IMPORTANT VISIT INFORMATION Patient Instructions Constipation, My [facility] Additional Instructions Rest. Take plenty of clear liquids Avoid dairy for the next 3-5 days. Use prune juice and miralax to keep yourself regular Problem Qualifiers Primary Impression: Constipation Constipation type: unspecified constipation type Qualified Codes: K59.00 - Constipation, unspecified
[2017-07-26 02:17] LABS: BASO % 0.1 %; BASO ABS # 0.01 K/uL (0-0.2); EOS % 1.1 %; EOS ABS # 0.09 K/uL (0-0.5); HEMATOCRIT 44.4 % (42-52); HEMOGLOBIN 15.3 g/dL (14.0-18.0); IG# 0.01 K/uL (0.00-0.02); LYMPH % 40.8 %; LYMPH ABS # 3.28 K/uL (1.2-3.4); MEAN CELL VOLUME 84.1 fL (80-100); MEAN CORPUSCULAR HGB CONC 34.5 g/dl (32-36); MEAN PLATELET VOLUME 9.3 fL (7.4-10.4); MONO % 5.9 %; MONO ABS # 0.47 K/uL (0.11-0.59); NEUT ABS # 4.17 K/uL (1.4-6.5); PLATELET COUNT 211 K/uL (130-400); RED CELL DISTRIBUTION WIDTH CV 13.3 % (11.5-14.5); RED CELL DISTRIBUTION WIDTH SD 40.6 fL (36.4-46.3); WHITE BLOOD COUNT 8.03 K/uL (4.8-10.8)
[2017-07-26 02:34] LABS: ALBUMIN 3.8 gm/dl (3.4-5.0); CALCIUM 8.8 mg/dl (8.5-10.1); CREATININE 1.07 mg/dl (0.60-1.40); POTASSIUM 3.7 mmol/L (3.5-5.1)
[2017-07-26 02:37] LABS: TOTAL PROTEIN 7.3 gm/dl (6.4-8.2)
[2017-07-26 04:02] VITALS: BP 106/70; PULSE 80; O2SAT 97
--- NOTE | 2017-07-26 08:56 | DIAGNOSTIC IMAGING REPORT ---
PA CHEST WITH ABDOMINAL SERIES CLINICAL HISTORY: Constipation. FINDINGS: A PA chest radiograph is compared to study dated 07/11/2017. The examination is degraded by patient rotation. The cardiomediastinal silhouette is unremarkable. The lungs and pleural spaces are clear. No pneumothorax is seen. The bony thorax is grossly intact. Supine and erect abdominal radiographs are correlated with abdominal CT dated 01/08/2017. There is a nonobstructed abdominal bowel gas pattern. Moderate colonic fecal retention is observed. No evidence of intraperitoneal free air is seen. There are no abnormal abdominal calcifications. A phlebolith is seen in the pelvis. The lumbosacral spine and bony pelvis appear intact noting moderate colonic fecal retention. IMPRESSION: 1. No active disease in the chest. 2. Nonobstructed abdominal bowel gas pattern. Electronically signed by: Rob Benitez M.D. 07/26/2017 8:55 AM Dictated Date/Time: 07/26/2017 8:53 AM
== END 2017-07-26 04:08 | disposition home or self-care (01) ==
LOC: C.EDB 01:29
DX: K59.00 Constipation, unspecified (principal); Z88.8 Allergy status to other drugs, medicaments and biological substances; Z80.9 Family history of malignant neoplasm, unspecified

== ENCOUNTER 2017-07-29 02:18 | Emergency (ER) | payer OTHER ==
[~2017-07-29] VITALS: Ht 154.9 cm; Wt 69.0 kg
[~2017-07-29 02:18] MED LIST changes: -GUAI1TAB55 PO; -PSEU30TA3 PO; -SIME180C6 PO
[2017-07-29 02:23] VITALS: TEMP 36.6; Ht 154.9 cm; Wt 69.0 kg
[2017-07-29] MEDS ORDERED: AMPH20CA3 PO (02:36)
[2017-07-29] MEDS ORDERED: KETOROLAC TROMETHAMINE 30 MG/ML VIAL IV STA (02:41)
[2017-07-29] MEDS ORDERED: SODIUM CHLORIDE 0.9% 1000ML 1,000 ML IV ONE (02:45)
[2017-07-29 03:10] LABS: BASO % 0.3 %; BASO ABS # 0.02 K/uL (0-0.2); EOS % 1.6 %; EOS ABS # 0.11 K/uL (0-0.5); HEMATOCRIT 43.6 % (42-52); HEMOGLOBIN 15.3 g/dL (14.0-18.0); LYMPH % 48.7 %; LYMPH ABS # 3.43 K/uL (1.2-3.4); MEAN CORPUSCULAR HEMOGLOBIN 29.5 pg (25-34); MEAN CORPUSCULAR HGB CONC 35.1 g/dl (32-36); MEAN PLATELET VOLUME 9.5 fL (7.4-10.4); MONO % 6.2 %; MONO ABS # 0.44 K/uL (0.11-0.59); NEUT % 43.2 %; NEUT ABS # 3.05 K/uL (1.4-6.5); PLATELET COUNT 220 K/uL (130-400); RED CELL DISTRIBUTION WIDTH CV 13.4 % (11.5-14.5); RED CELL DISTRIBUTION WIDTH SD 40.6 fL (36.4-46.3); WHITE BLOOD COUNT 7.05 K/uL (4.8-10.8)
[2017-07-29 03:41] LABS: ALBUMIN 3.9 gm/dl (3.4-5.0); CALCIUM 8.6 mg/dl (8.5-10.1); CREATININE 0.99 mg/dl (0.60-1.40); POTASSIUM 3.8 mmol/L (3.5-5.1)
[2017-07-29 03:52] LABS: TOTAL PROTEIN 7.5 gm/dl (6.4-8.2)
[2017-07-29 04:44] VITALS: BP 111/65; PULSE 78; O2SAT 98
--- NOTE | 2017-07-29 06:35 | DIAGNOSTIC IMAGING REPORT ---
CHEST ONE VIEW PORTABLE CLINICAL HISTORY: Left-sided chest pain and shortness of breath. COMPARISON STUDY: Chest radiograph July 26, 2017. FINDINGS: Lung volumes are normal. No pneumothorax or pleural effusion is present. No consolidation is identified. Pulmonary vascularity is normal. IMPRESSION: No acute cardiopulmonary findings. Electronically signed by: Lenny Goins M.D. 07/29/2017 6:34 AM Dictated Date/Time: 07/29/2017 6:33 AM
--- NOTE | 2017-07-29 23:39 | EMERGENCY ROOM VISIT NOTE ---
History First contact with patient: 02:30 Chief Complaint: CHEST PAIN Stated Complaint: CHEST PAIN,TINGLING ARM,SHALLOW/SHORT BREATH Nursing Triage Summary: Patient reports shortness of breath, left sided chest pain radiating to left jaw, and nausea that all began approx 2200 while watching TV. Patient was seen here 3 weeks ago for similar symptoms. Denies cardiac history. History of Present Illness The patient is a 27 year old male who presents to the Emergency Room with complaints of left-sided chest pain radiating into his left jaw with shortness of breath that began about 4-1/2 hours ago while watching television. The patient symptoms do not appear exertional in nature. He had a similar episode to this about 3 weeks ago where his evaluation was without acute findings. The patient states that at the onset of symptoms he did take Ativan, which did not improve his discomfort. He does not report recent fevers, chills, coughing, or abdominal pain. He does not have recent travel history and rates his overall discomfort a dull 7/10. Review of Systems More than 10 systems were reviewed and otherwise negative with the exception of history of present illness. 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 Current/Historical Medications Scheduled Amphetamine-Dextroamphetamine 20MG (Adderall Xr 20MG), 20 MG PO DAILY Dexlansoprazole (Dexilant), 30 MG PO DAILY Scheduled PRN Albuterol Hfa (Ventolin Hfa), 2 PUFFS INH Q6H PRN for Shortness of Breath Lorazepam (Ativan), 0.5 MG PO Q6H PRN for Anxiety Physical Exam Vital Signs Date Time Temp Pulse Resp B/P (MAP) Pulse Ox O2 Delivery O2 Flow Rate FiO2 07/29/17 04:44 78 18 111/65 98 Room Air 07/29/17 03:43 64 18 108/76 98 Room Air 07/29/17 03:00 74 07/29/17 02:56 70 16 116/78 98 Room Air 07/29/17 02:51 Room Air 07/29/17 02:30 Room Air 07/29/17 02:23 36.6 86 20 122/75 100 Room Air Physical Exam VITALS: Vitals are noted on the nurse's note and reviewed by myself. Vital signs stable. GENERAL: Well-developed, well-nourished, male, who is in no acute distress and resting comfortably. Patient is cooperative with the examination. HEAD: Normocephalic atraumatic. EARS: External ear normal. External auditory canals clear, tympanic membranes pearly allan without erythema or effusion bilaterally. EYES: Pupils equal round and reactive to light and accommodation. Conjunctivae without injection, sclerae without icterus. Extraocular movements intact. NOSE: Patent, turbinates without inflammation or discharge. MOUTH: Mucous membranes moist. Tonsils are not enlarged. Pharynx without erythema, blood, or exudate. Uvula midline. Airway patent. NECK: Supple without nuchal rigidity. No lymphadenopathy. No thyromegaly. Cervical spine is nontender. HEART: Regular rate and rhythm without murmurs gallops or rubs. LUNGS: Clear to auscultation bilaterally without wheezes, rales or rhonchi. No retractions or accessory muscle use. ABDOMEN: Positive normal bowel sounds x 4. Soft, nontender, without masses or organomegaly. No guarding or rebound tenderness. MUSCULOSKELETAL: No muscle atrophy, erythema, or edema noted. Full range of motion in all extremities. No tenderness to palpation. Medical Decision & Procedures ER Provider Diagnostic Interpretation: CHEST ONE VIEW PORTABLE CLINICAL HISTORY: Left-sided chest pain and shortness of breath. COMPARISON STUDY: Chest radiograph July 26, 2017. FINDINGS: Lung volumes are normal. No pneumothorax or pleural effusion is present. No consolidation is identified. Pulmonary vascularity is normal. IMPRESSION: No acute cardiopulmonary findings. Laboratory Results 07/29/17 02:58 Red Blood Count 5.19, Mean Corpuscular Volume 84.0, Mean Corpuscular Hemoglobin 29.5, Mean Corpuscular Hemoglobin Concent 35.1, Mean Platelet Volume 9.5, Neutrophils (%) (Auto) 43.2, Lymphocytes (%) (Auto) 48.7, Monocytes (%) (Auto) 6.2, Eosinophils (%) (Auto) 1.6, Basophils (%) (Auto) 0.3, Neutrophils # (Auto) 3.05, Lymphocytes # (Auto) 3.43, Monocytes # (Auto) 0.44, Eosinophils # (Auto) 0.11, Basophils # (Auto) 0.02 07/29/17 02:58 Test 07/29/17 02:58 07/29/17 03:03 07/29/17 03:35 White Blood Count 7.05 K/uL (4.8-10.8) Red Blood Count 5.19 M/uL (4.7-6.1) Hemoglobin 15.3 g/dL (14.0-18.0) Hematocrit 43.6 % (42-52) Mean Corpuscular Volume 84.0 fL (80-100) Mean Corpuscular Hemoglobin 29.5 pg (25-34) Mean Corpuscular Hemoglobin Concent 35.1 g/dl (32-36) Platelet Count 220 K/uL (130-400) Mean Platelet Volume 9.5 fL (7.4-10.4) Neutrophils (%) (Auto) 43.2 % Lymphocytes (%) (Auto) 48.7 % Monocytes (%) (Auto) 6.2 % Eosinophils (%) (Auto) 1.6 % Basophils (%) (Auto) 0.3 % Neutrophils # (Auto) 3.05 K/uL (1.4-6.5) Lymphocytes # (Auto) 3.43 K/uL (1.2-3.4) Monocytes # (Auto) 0.44 K/uL (0.11-0.59) Eosinophils # (Auto) 0.11 K/uL (0-0.5) Basophils # (Auto) 0.02 K/uL (0-0.2) RDW Standard Deviation 40.6 fL (36.4-46.3) RDW Coefficient of Variation 13.4 % (11.5-14.5) Immature Granulocyte % (Auto) 0.0 % Immature Granulocyte # (Auto) 0.00 K/uL (0.00-0.02) Anion Gap 5.0 mmol/L (3-11) Est Creatinine Clear Calc Drug Dose 91.8 ml/min Estimated GFR () 118.8 Estimated GFR (Non- 102.5 BUN/Creatinine Ratio 8.6 (10-20) Calcium Level 8.6 mg/dl (8.5-10.1) Total Bilirubin 1.0 mg/dl (0.2-1) Aspartate Amino Transf (AST/SGOT) 22 U/L (15-37) Alanine Aminotransferase (ALT/SGPT) 22 U/L (12-78) Alkaline Phosphatase 58 U/L (45-117) Total Protein 7.5 gm/dl (6.4-8.2) Albumin 3.9 gm/dl (3.4-5.0) Globulin 3.6 gm/dl (2.5-4.0) Albumin/Globulin Ratio 1.1 (0.9-2) Lipase 186 U/L (73-393) Thyroid Stimulating Hormone (TSH) 2.590 uIu/ml (0.300-4.500) Lyme Disease IgG Antibody NEG (NEG) Lyme Disease IgM Antibody NEG (NEG) Bedside D-Dimer 169 ng/mlFEU (0-450) Bedside Troponin I < 0.030 ng/ml (0-0.045) Urine Color YELLOW Urine Appearance CLEAR (CLEAR) Urine pH 6.0 (4.5-7.5) Urine Specific [place] 1.013 (1.000-1.030) Urine Protein NEG (NEG) Urine Glucose (UA) NEG (NEG) Urine Ketones NEG (NEG) Urine Occult Blood TRACE (NEG) Urine Nitrite NEG (NEG) Urine Bilirubin NEG (NEG) Urine Urobilinogen NEG (NEG) Urine Leukocyte Esterase NEG (NEG) Urine WBC (Auto) 0 /hpf (0-5) Urine RBC (Auto) 0-4 /hpf (0-4) Urine Hyaline Casts (Auto) 1-5 /lpf (0-5) Urine Epithelial Cells (Auto) 0-5 /lpf (0-5) Urine Bacteria (Auto) NEG (NEG) Urine Opiates Screen NEG (NEG) Urine Methadone, Qualitative NEG (NEG) Urine Barbiturates NEG (NEG) Urine Phencyclidine (PCP) Level NEG (NEG) Ur Amphetamine/Methamphetamine NEG (NEG) MDMA (Ecstasy) Screen NEG (NEG) Urine Benzodiazepines Screen NEG (NEG) Urine Cocaine Metabolite NEG (NEG) Urine Marijuana (THC) NEG (NEG) Medications Administered Medications (Trade) Dose Ordered Sig/Leidy Route Start Time Stop Time Status Last Admin Dose Admin Sodium Chloride 1,000 ml @ 999 mls/hr Q1H1M ONCE IV 07/29/17 02:45 07/29/17 03:45 DC 07/29/17 03:05 999 MLS/HR Ketorolac Tromethamine (Toradol Inj) 30 mg NOW STAT IV 07/29/17 02:41 07/29/17 02:43 DC 07/29/17 03:05 30 MG ECG Per My Interpretation Change: Normal sinus rhythm with sinus arrhythmia @75 bpm Normal ECG When compared with ECG of 11-JUL-2017 16:36, No significant change was found ED Course Physical exam and history were performed. Nursing notes, EMR, and Medication List were personally reviewed. Patient appears to have chest pain symptoms began earlier tonight. EKG was performed and is as above without acute ST elevation. IV access was established and labs were obtained. Chest x-ray was performed. Patient was placed on a monitoring coordinator. He was hydrated and medicated as above. The patient's blood work is as above and was reviewed. He does not have a significantly elevated white blood cell count, gross anemia, bandemia, or significant electrolyte imbalance. Lipase and transaminases are not diagnostic. Troponin and d-dimer 1 are both negative. He remained in normal sinus rhythm on the monitoring coordinator. X-ray was reviewed by myself and radiology showing no process. Overall the patient appears well for discharge home. He feels much better after monitoring here in the ER and I do suspect anxiety or stress as the likely etiology of the patient's symptoms. The patient will be instructed to follow with his primary care physician for further management. He may need a cardiology evaluation as an outpatient or possibly a Holter monitor. The patient was otherwise invited back to the ER with any new, worsening, or concerning symptoms. The chart was completed utilizing [employer] Voice Recognition Software. Grammatical errors, random word insertions, pronoun errors, and incomplete sentences are an occasional consequence of this system due to software limitations, ambient noise, and hardware issues. Any formal questions or concerns about the content, text, or information contained within the body of this dictation should be directly addressed to the provider for clarification. . Medical Decision Differential diagnosis includes, but is not limited to: Myocardial infarction, dysrhythmia, pericarditis, pneumothorax, aortic aneurysm/dissection, DVT/PE, anxiety, GERD, PUD, electrolyte imbalance, thyroid disorder, pneumonia, bronchitis, pancreatitis, and others Impression Primary Impression: Non-cardiac chest pain Departure Information Dispostion Home / Self-Care Condition GOOD Referrals Gordon Armendariz PA-C (PCP) Forms HOME CARE DOCUMENTATION FORM, IMPORTANT VISIT INFORMATION Patient Instructions My [facility] Additional Instructions You were seen and evaluated today on an emergency basis only. This is not a substitute for, or an effort to provide, complete comprehensive medical care. It is not possible to recognize and treat all injuries or illnesses in a single emergency department visit. For this reason it is recommended that you followup with your primary care physician in the next 2-3 days for recheck. For baseline pain relief you may alternate ibuprofen and acetaminophen every 4 hours for pain control. Take 600 mg ibuprofen (Advil) and then 4 hours later take 1000 mg acetaminophen (Tylenol). Do not take more than 3000 mg acetaminophen in a single day. You are welcome to return to the emergency department anytime with new, worsening, or concerning symptoms.
== END 2017-07-29 04:46 | disposition home or self-care (01) ==
LOC: C.EDB 02:19
DX: R07.89 Other chest pain (principal); Z80.9 Family history of malignant neoplasm, unspecified; Z79.899 Other long term (current) drug therapy

== ENCOUNTER 2017-07-30 22:57 | Emergency (ER) | payer OTHER ==
[~2017-07-30] VITALS: Ht 154.9 cm; Wt 69.1 kg
[~2017-07-30 22:57] MED LIST changes: +AMPH20CA3 PO
[2017-07-30 23:01] VITALS: BP 148/80; PULSE 72; TEMP 36.6; O2SAT 98; Ht 154.9 cm; Wt 69.1 kg
--- NOTE | 2017-07-30 23:19 | EMERGENCY ROOM VISIT NOTE ---
History Report prepared by Tal: Queta Kirby Under the Supervision of: Dr. Didier Darling D.O. First contact with patient: 23:05 Chief Complaint: ANXIETY Stated Complaint: CHEST PAIN, ARM NUMBNESS, NAUSEA, SWEATING History of Present Illness The patient is a 27 year old male who presents to the Emergency Room with complaints of persistent chest pain that started earlier today. The patient rates his pain a 6/10 in severity. He reports his left arm is numb. He states he had similar symptoms 1 month ago and again 2 nights ago. He was seen in the ED before with these symptoms and all of his results came back negative. 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 The patient takes Adderall for ADHD. Source of History: patient Onset: earlier today Position: chest Timing: other (persistent) Review of Systems See HPI for pertinent positives & negatives. A total of 10 systems reviewed and were otherwise negative. 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 Current/Historical Medications Scheduled Amphetamine-Dextroamphetamine 20MG (Adderall Xr 20MG), 20 MG PO DAILY Dexlansoprazole (Dexilant), 30 MG PO DAILY Scheduled PRN Albuterol Hfa (Ventolin Hfa), 2 PUFFS INH Q6H PRN for Shortness of Breath Lorazepam (Ativan), 0.5 MG PO Q6H PRN for Anxiety Allergies Coded Allergies: Prednisone (Verified Adverse Reaction, Severe, DIZZY, SHAKY, DISORIENTED, 07/29/17) Physical Exam Vital Signs Date Time Temp Pulse Resp B/P (MAP) Pulse Ox O2 Delivery O2 Flow Rate FiO2 07/30/17 23:01 36.6 72 18 148/80 98 Room Air Physical Exam CONSTITUTIONAL/VITAL SIGNS: Reviewed / noted above. GENERAL: Non-toxic in appearance. INTEGUMENTARY: Warm, dry, and [place]. HEAD: Normocephalic. EYES: without scleral icterus or trauma. ENT/OROPHARYNX: clear and moist. LYMPHADENOPATHY/NECK: Is supple without lymphadenopathy or meningismus. RESPIRATORY: Lungs clear and equal. CARDIOVASCULAR: Regular rate and rhythm. GI/ABDOMEN: Soft and nontender. No organomegaly or pulsatile mass. No rebound or guarding. Normal bowel sounds. EXTREMITIES: Warm and well perfused. BACK: No CVA tenderness. NEUROLOGICAL: Intact without focal deficits. PSYCHIATRIC: normal affect. MUSCULOSKELETAL: Normally developed with good muscle tone. Medical Decision & Procedures ECG Per My Interpretation Indication: chest pain Rate (beats per minute): 81 Rhythm: normal sinus Findings: no ectopy, other (No ST elevation, no acute injury) ED Course 2304: Previous medical records were reviewed. The patient was evaluated in room B6. A complete history and physical examination was performed. 2314: On reevaluation, the patient is resting comfortably. I discussed the results and findings with the patient. He verbalized agreement of the treatment plan. He was discharged home. Medical Decision the differential was considered includes acute myocardial infarction, acute coronary syndrome, myocarditis, pericarditis, pericardial effusions /tamponad, esophageal perforation, thoracic aortic dissection, pulmonary embolism, pneumonia, pneumothorax, pancreatitis, shingles, acute cholecystitis, perforated abdominal viscus. This is a 27-year-old male who presents to the ED with a chief complaint of left -sided chest pain that radiates into his arm. The patient has been here for the same in less than 24 hours. 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 He has been having some anxiety. He was seen by his psychiatrist yesterday at [facility] and started on Zoloft for symptoms. The patient contacted his PCP today with some left-sided chest pain was referred to the emergency department. The patient states that similar to the symptoms that he had yesterday. His vital signs today are normal. His physical exam was unremarkable. A 12-lead EKG reveals a normal sinus rhythm at a rate of 81 without ischemic changes. I did review the test results from yesterday's visit. The patient was reassured that his symptoms are not cardiac in etiology and that he does not have a serious etiology as a cause for her symptoms. His symptoms may be musculoskeletal or anxiety related. He is felt to be stable for discharge. Medication Reconcilliation Current Medication List: was personally reviewed by me Impression Primary Impression: Non-cardiac chest pain Scribe Attestation The scribe's documentation has been prepared under my direction and personally reviewed by me in its entirety. I confirm that the note above accurately reflects all work, treatment, procedures, and medical decision making performed by me. Departure Information Dispostion Home / Self-Care Referrals Gordon Armendariz PA-C (PCP) Patient Instructions My [facility] Additional Instructions Follow-up with your doctor for further care and evaluation in 5-7 days if symptoms persist. Return to the emergency department for worsening or new symptoms or any concerns. You have been examined and treated today on an emergency basis only. This is not a substitute for, or an effort to provide, complete comprehensive medical care. It is impossible to recognize and treat all injuries or illnesses in a single emergency department visit. It is therefore important that you follow up closely with your doctor. Call as soon as possible for an appointment.
== END 2017-07-30 23:28 | disposition home or self-care (01) ==
LOC: C.EDB 22:58
DX: R07.89 Other chest pain (principal); Z88.8 Allergy status to other drugs, medicaments and biological substances

== ENCOUNTER 2017-07-31 18:45 | Emergency (ER) | payer OTHER ==
[~2017-07-31] VITALS: Ht 154.9 cm; Wt 67.4 kg
[2017-07-31 18:50] VITALS: Ht 154.9 cm; Wt 67.4 kg
[2017-07-31] MEDS ORDERED: GI COCKTAIL PO STA (19:31)
[2017-07-31] MEDS ORDERED: LORAZEPAM 2 MG/ML 1 ML VIAL IV STA (19:31)
[2017-07-31] MEDS ORDERED: SODIUM CHLORIDE 0.9% 1000ML 1,000 ML IV STA (19:31)
[2017-07-31] MEDS ORDERED: ONDANSETRON INJ 2 MG/ML 2 ML VIAL IV STA (19:31)
[2017-07-31] MEDS ORDERED: ALUMINUM/MAGNESIUM SUSP 30 ML UDC ONE (19:46)
[2017-07-31] MEDS ORDERED: LIDOCAINE HCL 2% VISC SOLN 20 ML UDC ONE (19:46)
--- NOTE | 2017-07-31 21:24 | EMERGENCY ROOM VISIT NOTE ---
History Report prepared by Tal: Claudia Rodriguez Under the Supervision of: Dr. Tian Sosa M.D. First contact with patient: 19:13 Chief Complaint: CHEST PAIN Stated Complaint: AGITATION, CHEST TIGHTNESS, SOB, SWEATING, HEADACH Nursing Triage Summary: chest pain History of Present Illness The patient is a 27 year old male who presents to the Emergency Room with complaints of persistent generalized chest pain starting 4 days ago. He currently rates his discomfort as an 8/10 in severity. The patient was seen in the ED for the same chest pain yesterday. He has had an EKG, chest X-ray, and D dimer which were all negative. He followed up with his PCP who thought his chest pain might be from starting Zoloft 4 days ago. He has been having the chest pain as well as sweats and chills since then. He has been nauseous on the Zoloft which his doctor told him would subside after time. He is concerned because the chest pain is continuing. He had this pain 2 weeks before starting Zoloft. He is still taking Zoloft. He has a history of reflux and panic attacks. He does not drink coffee. He denies any family history of MO at a young age. Source of History: patient Onset: 4 days ago Position: chest (generalized) Symptom Intensity: 8/10 Timing: other (persistent) Associated Symptoms: + chills, + diaphoresis, + nausea Review of Systems See HPI for pertinent positives and negatives. A total of ten systems were reviewed and were otherwise negative. 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: [employer] Current/Historical Medications Scheduled Amphetamine-Dextroamphetamine 20MG (Adderall Xr 20MG), 20 MG PO DAILY Dexlansoprazole (Dexilant), 30 MG PO DAILY Scheduled PRN Albuterol Hfa (Ventolin Hfa), 2 PUFFS INH Q6H PRN for Shortness of Breath Lorazepam (Ativan), 0.5 MG PO Q6H PRN for Anxiety Allergies Coded Allergies: Prednisone (Verified Adverse Reaction, Severe, DIZZY, SHAKY, DISORIENTED, 07/29/17) Physical Exam Vital Signs Date Time Temp Pulse Resp B/P (MAP) Pulse Ox O2 Delivery O2 Flow Rate FiO2 07/31/17 21:31 36.7 70 20 121/73 98 07/31/17 20:48 79 20 122/66 98 Room Air 07/31/17 19:54 78 18 130/80 97 Room Air 07/31/17 19:22 79 07/31/17 19:03 96 Room Air 07/31/17 18:50 36.7 91 18 123/69 95 Room Air Physical Exam GENERAL: Awake, alert, anxious-appearing, in no distress HENT: Normocephalic, atraumatic. Dry mucous membranes, otherwise oropharynx unremarkable. EYES: Normal conjunctiva. Sclera non-icteric. NECK: Supple. No nuchal rigidity. FROM. No JVD. RESPIRATORY: Clear to auscultation. CARDIAC: Regular rate, normal rhythm. Extremities warm and well perfused. Pulses equal. ABDOMEN: Soft, non-distended. No tenderness to palpation. No rebound or guarding. No masses. RECTAL: Deferred. MUSCULOSKELETAL: Chest examination reveals no tenderness. The back is symmetrical on inspection without obvious abnormality. There is no CVA tenderness to palpation. No joint edema. LOWER EXTREMITIES: Calves are equal size bilaterally and non-tender. No edema. No discoloration. NEURO: Normal sensorium. No sensory or motor deficits noted. Normal DTRs, no clonus, no nystagmus. SKIN: Warm and dry. No rash or jaundice noted. Medical Decision & Procedures Medications Administered Medications (Trade) Dose Ordered Sig/Leidy Route Start Time Stop Time Status Last Admin Dose Admin Sodium Chloride 1,000 ml @ 999 mls/hr Q1H1M STAT IV 07/31/17 19:31 07/31/17 20:31 DC 07/31/17 19:31 999 MLS/HR Lorazepam (Ativan Inj) 1 mg NOW STAT IV 07/31/17 19:31 07/31/17 19:33 DC 07/31/17 19:31 1 MG Ondansetron HCl (Zofran Inj) 4 mg NOW STAT IV 07/31/17 19:31 07/31/17 19:33 DC 07/31/17 19:31 4 MG Miscellaneous Medication (Gi Cocktail) 24 ml NOW STAT PO 07/31/17 19:31 07/31/17 19:33 DC 07/31/17 19:31 24 ML ECG Per My Interpretation Indication: chest pain Rate (beats per minute): 84 Rhythm: normal sinus Findings: no acute ischemic change, other (normal axis, normal intervals) Comparison ECG Date: yesterday Change: no significant change ED Course 1921: The patient was evaluated in room B8. A complete history and physical exam was performed. 2117: I reevaluated the patient. Discussed results and discharge instructions: He verbalized understanding and agreement. The patient is ready for discharge. Medical Decision I reviewed the patient's past medical history, medications, and the nursing notes as described above. Differential diagnosis: Etiologies such as cardiac ischemia, aortic dissection, pulmonary embolism, pneumonia, pneumothorax, musculoskeletal, infections, pericarditis, myocarditis , esophageal rupture, gastrointestinal, as well as others were entertained. The patient is a 27-year-old gentleman with a past medical history of ADD on Adderall well as a history of anxiety and recent diagnosis of panic attacks with multiple ED visits for chest pain the past month presents emergency department with chest pain and shortness of breath that has continued since being seen in the ED on 07/29 and then again on 07/30 per hpi. Of note, the patient reports being placed on Zoloft for the first time on Thursday while he has been evaluated twice for the symptoms since then his PCP referred him to the emergency department for concern that he could be having serotonin syndrome. Rather the patient is anxious appearing but no acute distress, afebrile stable vital signs. He is neurologically intact and has no clonus, DTRs within normal limits, no nystagmus. Patient's skin is warm and dry. Likely has no evidence to suggest serotonin syndrome at this time. EKG is again unremarkable and similar to his prior visits with normal intervals. The patient has had repeated workups for his chest pain including negative d-dimer and troponins I do not feel a repeat workup is warranted at this time. Patient was given Ativan, Zofran, GI cocktail with significant improvement in his symptoms. While the patient does not exhibit any symptoms consistent with serotonin syndrome it is possible that he is experiencing some increased sympathomimetic effects given that he is also on Adderall. Thus, we will attempt to see if the patient symptoms improved by decreasing his dose of Zoloft to 25 mg daily as well as weaning his Adderall to 5 mg twice daily. Patient is agreeable with this plan he will follow-up with S tomorrow and then with his psychiatrist on Thursday. Findings and plan for follow-up reviewed with patient. Patient agreeable and d/c'd per discharge instructions. Medication Reconcilliation Current Medication List: was personally reviewed by me Blood Pressure Screening Patient's blood pressure: Normal blood pressure Blood pressure disposition: Did not require urgent referral Impression Primary Impression: Non-cardiac chest pain Additional Impression: Anxiety Scribe Attestation The scribe's documentation has been prepared under my direction and personally reviewed by me in its entirety. I confirm that the note above accurately reflects all work, treatment, procedures, and medical decision making performed by me. Departure Information Dispostion Home / Self-Care Referrals Gordon Armendariz PA-C (PCP) Patient Instructions Anxiety Body Response, ED Chest Pain Atypical Unkn Cause, [facility] Additional Instructions Please follow up with S tomorrow and your psychiatrist on Thursday in for re- evaluation. Your symptoms are most likely due to your underlying anxiety and possible interaction between your Adderall and/or Zoloft. Otherwise, your exam and EKG did not show signs of an emergent condition at this time. Reduce your Zoloft to 25 mg daily and attempt to wean your Adderall to 5 mg twice daily until reevaluated by your provider. Drink plenty of fluids to ensure hydration. Return to the emergency department for worsening symptoms as described in the accompanying instructions. Problem Qualifiers
[2017-07-31 21:31] VITALS: BP 121/73; PULSE 70; TEMP 36.7; O2SAT 98
== END 2017-07-31 21:32 | disposition home or self-care (01) ==
LOC: C.EDB 18:47
DX: R07.89 Other chest pain (principal); F41.9 Anxiety disorder, unspecified; Z88.8 Allergy status to other drugs, medicaments and biological substances

== ENCOUNTER 2017-11-07 18:13 | Inpatient (IN) | payer OTHER ==
[~2017-11-07] VITALS: Ht 154.9 cm; Wt 71.8 kg
[~2017-11-07 18:13] MED LIST changes: +IBUP-1050 PO; +PENI-82 PO; +PSEU30TA3 PO
[2017-11-07] MEDS ORDERED: SODIUM CHLORIDE 0.9% 1000ML 1,000 ML IV STA ×2 (18:45→20:34)
[2017-11-07] MEDS ORDERED: KETOROLAC TROMETHAMINE 30 MG/ML VIAL IV STA (18:45)
[2017-11-07] MEDS ORDERED: ACETAMINOPHEN 500 MG TAB PO STA (18:45)
[2017-11-07] MEDS ORDERED: ONDANSETRON INJ 2 MG/ML 2 ML VIAL IV STA (18:45)
[2017-11-07] MEDS ORDERED: FAMOTIDINE 20MG/5ML IV PUSH IV STA (18:50)
--- NOTE | 2017-11-07 19:11 | DIAGNOSTIC IMAGING REPORT ---
SINGLE VIEW CHEST CLINICAL HISTORY: Cough and fever. FINDINGS: An AP, portable, upright chest radiograph is compared to study dated 07/29/2017. The cardiomediastinal silhouette is unremarkable. The lungs and pleural spaces are clear. No pneumothorax is seen. The bony thorax is grossly intact. IMPRESSION: No active disease in the chest. Electronically signed by: Rob Benitez M.D. 11/07/2017 7:10 PM Dictated Date/Time: 11/07/2017 7:09 PM
--- NOTE | 2017-11-07 19:20 | EMERGENCY ROOM VISIT NOTE ---
ED Visit Note First contact with patient: 18:34 CHIEF COMPLAINT: Fever, sore throat, cough, body aches, nausea HISTORY OF PRESENTING ILLNESS: This is a 27-year-old male who presents to the emergency department with complaint of fever and body aches. Patient is a poor historian. He states that he started with sore throat 2 days ago, and has developed nasal congestion and a dry cough. He is here because his symptoms got severe today. He states he had a fever of 103-104 this afternoon, he last took Tylenol at 12 PM today. He had associated body aches, shaking chills, and nausea. He has had a frontal headache and a lot of sinus congestion and pressure. He denies any neck pain or stiffness. He has not vomited. He has some generalized upper abdominal discomfort, and states that he is having a lot of reflux, he states he has not taken his GERD medication for the past 2 days due to feeling ill. He has had a decreased appetite and has not been eating much for the past two days. He denies any diarrhea or constipation, but he has noted a small amount of bright red blood in his stool. He reports a history of hemorrhoids, and states he has had a colonoscopy for this in the past. He does report recent sick contact with a coworker who was diagnosed with Giardia, he would like to be tested for this today. Patient states that he is in a monogamous relationship with a male partner, he denies any history of HIV, and states that he and his partner tested regularly, most recently in March of this year and have proven negative. He and his partner are not on any prophylactic antiviral medication. REVIEW OF SYSTEMS: A complete 10 point review of systems was reviewed with the patient with pertinent positives and negatives as per history of present illness. All else were negative. PAST MEDICAL HISTORY: Reviewed in chart, see problem list below. SOCIAL HISTORY: Lives at home. He denies tobacco use. He is a [employer] student. ALLERGIES: Reviewed in chart, see below. PHYSICAL EXAM: CONSTITUTIONAL: Pleasant and cooperative. No acute distress, but appears unwell. Shaking rigors. Moderately dehydrated. HEENT: Normocephalic, atraumatic. Pupils equal, round and reactive to light, EOMI, normal conjunctiva bilaterally. TMs normal bilaterally. Pharynx mildly erythematous, but no edema or exudate. No trismus or uvular deviation. Airway patent. Dry mucous membranes. NECK: Supple, full active range of motion without discomfort. No nuchal rigidity or meningismus, negative Kernig's and Brudzinski. No cervical adenopathy. RESPIRATORY: Diminished throughout, otherwise clear to auscultation bilaterally with no wheezing, crackles, rhonchi or stridor. Equal expansion bilaterally. CARDIOVASCULAR: Tachycardic. Regular rhythm with no murmurs, rubs or gallops. Normal peripheral perfusion. No edema. GASTROINTESTINAL: Mild to moderate tenderness with palpation in the epigastric region and RUQ, abdomen is otherwise soft, nontender, nondistended. No palpable masses or HSM. Bowel sounds present in all quadrants. No CVA tenderness bilaterally. MUSCULOSKELETAL: Full range of motion of all joints without discomfort. INTEGUMENTARY: No rash or other significant dermatologic conditions noted. NEUROLOGIC: Alert and oriented X 4 with normal affect. Cranial nerves II-XII grossly intact, no facial droop. No pronator drift. No focal neurologic deficits noted. Normal strength and sensation in all 4 extremities. Normal speech. Normal gait observed. Negative Romberg. ED COURSE AND MEDICAL DECISION MAKING: CC: Patient presenting with complaint of fever, sore throat, cough, body aches DIFFERENTIAL DIAGNOSIS: Includes, but not limited to viral URI, pharyngitis, strep throat, bronchitis, pneumonia, acute sinusitis, influenza, mononucleosis, UTI, Giardia infection, cholecystitis, pancreatitis, gastritis, GERD, tick- borne illness, bacteremia/sepsis, meningitis, dehydration, HIV, among others. INTERPRETATION OF LABS: Marked leukocytosis with left shift, no anemia, normal platelets, no significant electrolyte abnormalities, mildly elevated creatinine with normal BUN, elevated total and direct bilirubin and mildly elevated transaminases, normal alk phos, normal lipase. Lactic acid within normal limits. UA notable for some hematuria, appears negative for infection. Rapid strep negative. Blood cultures x2 and throat culture pending. Lyme IgM equivocal, confirmation pending. Lyme IgG negative. Monospot and influenza A/ B pending. IMAGING: SINGLE VIEW CHEST CLINICAL HISTORY: Cough and fever. FINDINGS: An AP, portable, upright chest radiograph is compared to study dated 07/29/2017. The cardiomediastinal silhouette is unremarkable. The lungs and pleural spaces are clear. No pneumothorax is seen. The bony thorax is grossly intact. IMPRESSION: No active disease in the chest. ----- ULTRASOUND RIGHT UPPER QUADRANT ABDOMEN CLINICAL HISTORY: Right upper quadrant abdominal pain. COMPARISON STUDY: Abdominal CT dated 01/08/2017. TECHNIQUE: Real-time, grayscale, and color flow sonography of the right upper quadrant of the abdomen was performed. Images are reviewed in the transverse and longitudinal planes. FINDINGS: Liver: The liver is normal in size and echotexture. There is no intrahepatic biliary ductal dilatation. The main portal vein is patent. Gallbladder: The gallbladder is normal in appearance. No gallstones are identified. There is no gallbladder wall thickening or pericholecystic fluid. A sonographic Lewis's sign is reportedly absent. The common bile duct measures up to 0.4 cm in diameter. Pancreas: Not well visualized due to overlying bowel gas. Right kidney: Survey images of the right kidney demonstrate normal size and echotexture. There is no hydronephrosis. Ascites: None. IMPRESSION: Unremarkable sonographic assessment of the right upper quadrant. No gallstones are identified. ----- CT SCAN OF THE BRAIN WITHOUT IV CONTRAST CLINICAL HISTORY: Headache. COMPARISON STUDY: No priors. TECHNIQUE: Unenhanced axial CT scan of the brain is performed from the vertex to the skull base. A dose lowering technique was utilized adhering to the principles of ALARA. CT DOSE: 638.56 mGycm FINDINGS: Brain parenchyma: The brain parenchyma is normal in appearance. There is no hemorrhage, mass effect, or evidence of acute territorial ischemia by CT criteria. Baires-white matter is preserved. No extra-axial fluid collection is seen. Ventricles, sulci, cisterns: Normal in configuration. Intracranial vasculature: The visualized intracranial vasculature at the skull base is normal in appearance. Calvarium: Unremarkable. Sinuses and mastoids: The visualized paranasal sinuses are clear. The mastoid air cells are well pneumatized. Orbits: The bony orbits are grossly intact. IMPRESSION: No acute intracranial abnormality. ----- CT SCAN OF THE PARANASAL SINUSES CLINICAL HISTORY: Headache. COMPARISON STUDY: CT of the brain performed concurrently on 11/07/2017. TECHNIQUE: High-resolution CT scan of the paranasal sinuses is performed. Images are reviewed in the axial, sagittal, and coronal planes. IV contrast was not administered for this examination. A dose lowering technique was utilized adhering to the principles of ALARA. CT DOSE: 546.42 mGycm FINDINGS: Maxillary antra: Trace dependent mucosal thickening is seen on the right. Clear on the left. A thin bony septation is noted on the right. Anterior ethmoid sinuses: Clear. Posterior ethmoid sinuses: Clear. Sphenoid sinuses: Clear. Frontal sinuses: Clear. Ostiomeatal complexes: Patent bilaterally. Frontoethmoidal and sphenoethmoidal recesses: Patent bilaterally. Carotid arteries: The carotid arteries are covered and without septal attachments. Ethmoid roofs: The ethmoid roofs are symmetric. Nasal turbinates: Normal in appearance. Nasal septum: There is minimal leftward deviation of the bony nasal septum. Optic nerves: Covered. Orbits: The bony orbits are intact. Orbital contents are normal in appearance. Calvarium: The imaged calvarium is normal in appearance Mastoid air cells: Well pneumatized. Brain parenchyma: Partially visualized brain parenchyma is within normal limits. IMPRESSION: No paranasal sinus disease is identified. ----- CT SCAN OF THE ABDOMEN AND PELVIS WITH IV CONTRAST CLINICAL HISTORY: Right flank pain. COMPARISON STUDY: Abdominal CT dated 01/08/2017. Abdominal ultrasound dated 11/07/2017. TECHNIQUE: Following the IV administration of 115 cc of Optiray 320, CT scan of the abdomen and pelvis is performed from the lung bases to the proximal femora. Images are reviewed in the axial, sagittal, and coronal planes. The IV came apart during the initial contrast injection. IV contrast was then administered without complication. Imaging was slightly delayed. A dose lowering technique was utilized adhering to the principles of ALARA. CT DOSE: 317.18 mGy.cm FINDINGS: Lung bases: The heart is normal in size and without pericardial effusion. The lung bases are clear. There is a tiny hiatal hernia. Liver: The contrast-enhanced liver is normal in size, contour, and attenuation. There is no intrahepatic biliary ductal dilatation. The hepatic veins and portal veins are patent. Gallbladder: Unremarkable. Spleen: Normal in size and attenuation. Pancreas: Unremarkable. Adrenal glands: Unremarkable. Kidneys: The contrast enhanced kidneys are normal in size and without hydronephrosis. The kidneys enhance and excrete symmetrically. Excreted contrast is present within the renal collecting system and ureters. Abdominal vasculature: The abdominal aorta is normal in course and caliber. Bowel: There is mild colonic fecal retention. No bowel obstruction is seen. The appendix is not identified and reported surgically absent. Peritoneum: There is no intraperitoneal free air or abdominal ascites. Lymphadenopathy: None. Pelvic viscera: The bladder, prostate, and seminal vesicles are normal as visualized. Skeletal structures: No lytic or blastic lesions are seen. IMPRESSION: There are no acute infectious or inflammatory findings in the abdomen or pelvis. MEDICATION RECONCILIATION: I attest that I have personally reviewed the patient 's current medication list. INITIAL VITAL SIGNS REVIEW: I reviewed the patient's initial vital signs and interpret them as follows: T: Afebrile; BP: Normotensive; HR: Tachycardic; RR : Within normal limits; Pulse Ox: Within normal limits on room air. Blood pressure screening: The patient was found to have normal blood pressure on screening and does not require follow-up for repeat blood pressure check. SUMMARY: Patient was evaluated at bedside, history and physical exam performed. Patient is alert and oriented, in no acute distress, but does appear uncomfortable and ill. Repeat temp at bedside 99.7, but was shaking rigors. He does appear to be moderately dehydrated and is noted to be tachycardic. Mild epigastric tenderness on exam, he is complaining of reflux, requesting something for this. Mild pharyngeal erythema, no edema or exudate. Patent airway. Complains of frontal headache and sinus congestion, tenderness to percussion over maxillary sinuses. Neuro exam is intact with no focal deficits. No nuchal rigidity or meningismus on exam, I do not suspect meningitis. Orders were placed at bedside for labs, UA and urine culture, culture 2, lactic acid, rapid strep, chest x-ray, 2L NSS IV fluid bolus for hydration, IV Toradol and PO Tylenol for pain and fevers/chills. Patient discussed with Dr. Dash, who agrees with my assessment and plan. Labs and imaging reviewed as above. No pneumonia on chest x-ray. Labs notable for significant leukocytosis. Given report of fevers and tachycardia as well, IV cefepime ordered for broad-spectrum coverage, as source is currently unknown. Labs also notable for elevated Tbili and liver enzymes, given persistent epigastric/RUQ tenderness, US gallbladder study was ordered, this was reviewed and is negative for acute cholecystitis. Patient reassessed multiple times throughout ED stay, he has had a persistent low-grade fever of 99.7-100.4 by my recheck after receiving Toradol and Tylenol. Tachycardia is downtrending, though he has had some transient hypotension which seems to respond to IV fluids. He reports that his epigastric pain is improved after receiving the Pepcid. He also states that his body aches are feeling improved. When asked what is bothering him the most, he states his throat pain and sinus congestion. Given lack of identified source for fever, CT head and sinuses was also ordered to evaluate for acute sinusitis. Review of CT imaging appears unremarkable. Given the patient's symptoms of persistent fevers, tachycardia, hypotension, and significant leukocytosis, without identified source of infection, I feel the patient would benefit from admission for further workup and management. I spoke with Dr. Davenport, [facility] hospitalist resident, who is evaluating the patient for admission. He reports that the patient had significant right flank pain on his exam, requested a CT of the abdomen and pelvis, which was ordered. Lyme testing is equivocal, will defer to inpatient team regarding start of doxycycline. CT of the abdomen/pelvis is also reviewed and appears unremarkable, no explanation for source of infection. I spoke again with Dr. Hassan, hospitalist, who agrees to admit the patient for further workup and management. Patient was updated on all results and plan for admission, he verbalized understanding and was agreeable to this plan. Patient stable at time of admission. (Iva Levy CRNP) First contact with patient: 18:34 (Sai Dash M.D.) Problem List Medical Problems: (1) Hemorrhoids Status: Chronic (2) Laceration of colon Status: Resolved (3) Rectal bleeding Status: Resolved (Sai Dash M.D.) Current/Historical Medications Scheduled Amphetamine-Dextroamphetamine 20MG (Adderall Xr 20MG), 20 MG PO DAILY Dexlansoprazole (Dexilant), 30 MG PO DAILY Scheduled PRN Albuterol Hfa (Ventolin Hfa), 2 PUFFS INH Q6H PRN for Shortness of Breath Ibuprofen (Advil), 200 MG PO UD PRN for Pain Lorazepam (Ativan), 0.5 MG PO Q6H PRN for Anxiety Pseudoephedrine Hcl (Sudafed Nasal Decongestan), 60 MG PO Q6H PRN for Sinus Congestion Allergies Coded Allergies: Prednisone (Verified Adverse Reaction, Severe, DIZZY, SHAKY, DISORIENTED, 09/09/17) Vital Signs Date Time Temp Pulse Resp B/P (MAP) Pulse Ox O2 Delivery O2 Flow Rate FiO2 11/07/17 23:40 93 11/07/17 23:30 96 16 106/84 96 Room Air 11/07/17 22:21 87 16 113/87 98 Room Air 11/07/17 21:10 85 16 113/61 97 Room Air 11/07/17 20:29 37.3 98 18 94/58 97 Room Air 11/07/17 19:32 102 20 102/66 98 Room Air 11/07/17 19:31 100 11/07/17 19:00 98 Room Air 11/07/17 18:30 37.6 111 20 120/80 92 Room Air (Sai Dash M.D.) Laboratory Results Test 11/07/17 19:00 11/07/17 19:55 11/07/17 22:04 11/07/17 22:20 Erythrocyte Sedimentation Rate 22 mm/hr (0-14) Lactic Acid Level 1.5 mmol/L (0.4-2.0) Direct Bilirubin 0.4 mg/dl (0-0.2) Lipase 135 U/L (73-393) Lyme Disease IgG Antibody NEG (NEG) Monoscreen NEG (NEG) Urine Color YELLOW Urine Appearance CLEAR (CLEAR) Urine pH 7.0 (4.5-7.5) Urine Specific [place] 1.020 (1.000-1.030) Urine Protein NEG (NEG) Urine Glucose (UA) NEG (NEG) Urine Ketones TRACE (NEG) Urine Occult Blood 1+ (NEG) Urine Nitrite NEG (NEG) Urine Bilirubin NEG (NEG) Urine Urobilinogen NEG (NEG) Urine Leukocyte Esterase NEG (NEG) Urine WBC (Auto) 1-5 /hpf (0-5) Urine RBC (Auto) 10-30 /hpf (0-4) Urine Hyaline Casts (Auto) 1-5 /lpf (0-5) Urine Epithelial Cells (Auto) 5-10 /lpf (0-5) Urine Bacteria (Auto) NEG (NEG) Ethyl Alcohol mg/dL < 3.0 mg/dl (0-3) Influenza Type A Antigen Neg for Influ A (NEG) Influenza Type B Antigen Neg for Influ B (NEG) Test 11/07/17 23:37 (Sai Dash M.D.) Medications Administered Medications (Trade) Dose Ordered Sig/Leidy Route Start Time Stop Time Status Last Admin Dose Admin Acetaminophen (Tylenol Tab) 1,000 mg NOW STAT PO 11/07/17 18:45 11/07/17 18:49 DC 11/07/17 19:15 1,000 MG Ketorolac Tromethamine (Toradol Inj) 15 mg NOW STAT IV 11/07/17 18:45 11/07/17 18:49 DC 11/07/17 19:15 15 MG Sodium Chloride 1,000 ml @ 999 mls/hr Q1H1M STAT IV 11/07/17 18:45 11/07/17 19:45 DC 11/07/17 19:15 999 MLS/HR Ondansetron HCl (Zofran Inj) 4 mg NOW STAT IV 11/07/17 18:45 11/07/17 18:49 DC 11/07/17 19:16 4 MG Famotidine (Pepcid 20mg Iv Push) 20 mg ONE STAT IV 11/07/17 18:50 11/07/17 18:51 DC 11/07/17 19:16 20 MG Cefepime HCl 2000 mg/Dextrose 122 ml @ 200 mls/hr NOW STAT IV 11/07/17 19:25 11/07/17 20:01 DC 11/07/17 19:54 200 MLS/HR Sodium Chloride 1,000 ml @ 999 mls/hr Q1H1M STAT IV 11/07/17 20:34 11/07/17 21:34 DC 11/07/17 21:10 999 MLS/HR Acetaminophen (Tylenol Tab) 650 mg Q4H PRN PO 11/07/17 23:45 12/07/17 23:44 11/08/17 14:32 650 MG (Sai Dash M.D.) Departure Information Impression Primary Impression: Fever of unknown origin Additional Impression: Leukocytosis Dispostion Being Evaluated By Hospitalist Condition FAIR Referrals Gordon Armendariz PA-C (PCP) Patient Instructions My [facility] Problem Qualifiers Additional Impression: Leukocytosis Leukocytosis type: bandemia Qualified Codes: D72.825 - Bandemia
[2017-11-07 19:21] LABS: BASO % 0.1 %; BASO ABS # 0.02 K/uL (0-0.2); HEMATOCRIT 49.1 % (42-52); HEMOGLOBIN 16.6 g/dL (14.0-18.0); IG# 0.11 K/uL (0.00-0.02); LYMPH % 5.1 %; LYMPH ABS # 1.13 K/uL (1.2-3.4); MEAN CELL VOLUME 84.5 fL (80-100); MEAN CORPUSCULAR HEMOGLOBIN 28.6 pg (25-34); MEAN CORPUSCULAR HGB CONC 33.8 g/dl (32-36); MEAN PLATELET VOLUME 10.5 fL (7.4-10.4); MONO % 6.8 %; MONO ABS # 1.51 K/uL (0.11-0.59); NEUT % 87.5 %; NEUT ABS # 19.41 K/uL (1.4-6.5); PLATELET COUNT 196 K/uL (130-400); RED CELL DISTRIBUTION WIDTH CV 13.9 % (11.5-14.5); RED CELL DISTRIBUTION WIDTH SD 42.7 fL (36.4-46.3); WHITE BLOOD COUNT 22.18 K/uL (4.8-10.8)
[2017-11-07] MEDS ORDERED: CEFEPIME IV 2,000 MG in DEXTROSE 5% 100ML 100 ML IV STA (19:25)
[2017-11-07 19:41] LABS: ALBUMIN 3.9 gm/dl (3.4-5.0); CALCIUM 8.9 mg/dl (8.5-10.1); CREATININE 1.31 mg/dl (0.60-1.40); POTASSIUM 3.9 mmol/L (3.5-5.1); TOTAL PROTEIN 8.2 gm/dl (6.4-8.2)
--- NOTE | 2017-11-07 21:03 | DIAGNOSTIC IMAGING REPORT ---
ULTRASOUND RIGHT UPPER QUADRANT ABDOMEN CLINICAL HISTORY: Right upper quadrant abdominal pain. COMPARISON STUDY: Abdominal CT dated 01/08/2017. TECHNIQUE: Real-time, grayscale, and color flow sonography of the right upper quadrant of the abdomen was performed. Images are reviewed in the transverse and longitudinal planes. FINDINGS: Liver: The liver is normal in size and echotexture. There is no intrahepatic biliary ductal dilatation. The main portal vein is patent. Gallbladder: The gallbladder is normal in appearance. No gallstones are identified. There is no gallbladder wall thickening or pericholecystic fluid. A sonographic Lewis's sign is reportedly absent. The common bile duct measures up to 0.4 cm in diameter. Pancreas: Not well visualized due to overlying bowel gas. Right kidney: Survey images of the right kidney demonstrate normal size and echotexture. There is no hydronephrosis. Ascites: None. IMPRESSION: Unremarkable sonographic assessment of the right upper quadrant. No gallstones are identified. Electronically signed by: Rob Benitez M.D. 11/07/2017 9:02 PM Dictated Date/Time: 11/07/2017 9:01 PM
--- NOTE | 2017-11-07 21:05 | DIAGNOSTIC IMAGING REPORT ---
CT SCAN OF THE BRAIN WITHOUT IV CONTRAST CLINICAL HISTORY: Headache. COMPARISON STUDY: No priors. TECHNIQUE: Unenhanced axial CT scan of the brain is performed from the vertex to the skull base. A dose lowering technique was utilized adhering to the principles of ALARA. CT DOSE: 638.56 mGycm FINDINGS: Brain parenchyma: The brain parenchyma is normal in appearance. There is no hemorrhage, mass effect, or evidence of acute territorial ischemia by CT criteria. Baires-white matter is preserved. No extra-axial fluid collection is seen. Ventricles, sulci, cisterns: Normal in configuration. Intracranial vasculature: The visualized intracranial vasculature at the skull base is normal in appearance. Calvarium: Unremarkable. Sinuses and mastoids: The visualized paranasal sinuses are clear. The mastoid air cells are well pneumatized. Orbits: The bony orbits are grossly intact. IMPRESSION: No acute intracranial abnormality. Electronically signed by: Rob Benitez M.D. 11/07/2017 9:04 PM Dictated Date/Time: 11/07/2017 9:02 PM
--- NOTE | 2017-11-07 21:29 | DIAGNOSTIC IMAGING REPORT ---
CT SCAN OF THE PARANASAL SINUSES CLINICAL HISTORY: Headache. COMPARISON STUDY: CT of the brain performed concurrently on 11/07/2017. TECHNIQUE: High-resolution CT scan of the paranasal sinuses is performed. Images are reviewed in the axial, sagittal, and coronal planes. IV contrast was not administered for this examination. A dose lowering technique was utilized adhering to the principles of ALARA. CT DOSE: 546.42 mGycm FINDINGS: Maxillary antra: Trace dependent mucosal thickening is seen on the right. Clear on the left. A thin bony septation is noted on the right. Anterior ethmoid sinuses: Clear. Posterior ethmoid sinuses: Clear. Sphenoid sinuses: Clear. Frontal sinuses: Clear. Ostiomeatal complexes: Patent bilaterally. Frontoethmoidal and sphenoethmoidal recesses: Patent bilaterally. Carotid arteries: The carotid arteries are covered and without septal attachments. Ethmoid roofs: The ethmoid roofs are symmetric. Nasal turbinates: Normal in appearance. Nasal septum: There is minimal leftward deviation of the bony nasal septum. Optic nerves: Covered. Orbits: The bony orbits are intact. Orbital contents are normal in appearance. Calvarium: The imaged calvarium is normal in appearance Mastoid air cells: Well pneumatized. Brain parenchyma: Partially visualized brain parenchyma is within normal limits. IMPRESSION: No paranasal sinus disease is identified. Electronically signed by: Rob Benitez M.D. 11/07/2017 9:27 PM Dictated Date/Time: 11/07/2017 9:25 PM
[2017-11-07] MEDS ORDERED: OPTIRAY 320 IV PRN (22:30)
--- NOTE | 2017-11-07 22:47 | DIAGNOSTIC IMAGING REPORT ---
CT SCAN OF THE ABDOMEN AND PELVIS WITH IV CONTRAST CLINICAL HISTORY: Right flank pain. COMPARISON STUDY: Abdominal CT dated 01/08/2017. Abdominal ultrasound dated 11/07/2017. TECHNIQUE: Following the IV administration of 115 cc of Optiray 320, CT scan of the abdomen and pelvis is performed from the lung bases to the proximal femora. Images are reviewed in the axial, sagittal, and coronal planes. The IV came apart during the initial contrast injection. IV contrast was then administered without complication. Imaging was slightly delayed. A dose lowering technique was utilized adhering to the principles of ALARA. CT DOSE: 317.18 mGy.cm FINDINGS: Lung bases: The heart is normal in size and without pericardial effusion. The lung bases are clear. There is a tiny hiatal hernia. Liver: The contrast-enhanced liver is normal in size, contour, and attenuation. There is no intrahepatic biliary ductal dilatation. The hepatic veins and portal veins are patent. Gallbladder: Unremarkable. Spleen: Normal in size and attenuation. Pancreas: Unremarkable. Adrenal glands: Unremarkable. Kidneys: The contrast enhanced kidneys are normal in size and without hydronephrosis. The kidneys enhance and excrete symmetrically. Excreted contrast is present within the renal collecting system and ureters. Abdominal vasculature: The abdominal aorta is normal in course and caliber. Bowel: There is mild colonic fecal retention. No bowel obstruction is seen. The appendix is not identified and reported surgically absent. Peritoneum: There is no intraperitoneal free air or abdominal ascites. Lymphadenopathy: None. Pelvic viscera: The bladder, prostate, and seminal vesicles are normal as visualized. Skeletal structures: No lytic or blastic lesions are seen. IMPRESSION: There are no acute infectious or inflammatory findings in the abdomen or pelvis. Electronically signed by: Rob Benitez M.D. 11/07/2017 10:45 PM Dictated Date/Time: 11/07/2017 10:39 PM
[2017-11-07 22:58] LABS: INFLUENZA B ANTIGEN Neg for Influ B (NEG)
--- NOTE | 2017-11-07 23:09 | History and Physical ---
History & Physical Date & Time of Service: Nov 07, 2017 at 23:05 Chief Complaint: Fever, [place], Body Ache, Chills, Weak Primary Care Physician: Gordon Armendariz PA-C History of Present Illness Source: patient, hospital records The patient is a 27-year-old male with a past medical history of asthma that presents to the ED with a 2 day history of fever. The patient woke up with a fever 2 days ago that was associated with sweats, chills, sore throat and the sensation of head fullness. His temperature was initially 101 but earlier today was as high as 103 and 104 and decided to come into the emergency department. The patient states that he has also had associated abdominal discomfort over the last 2 days. His initial symptoms started with sore throat which has remained constant in addition to nasal congestion. He also complains of right-sided flank discomfort but that this is been going on for the last 4 months. 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 1 of his coworkers recently returned from [facility] are, and has been out of the office but was diagnosed with Giardia infection. The patient denies any recent camping or hiking [facility]. The patient is also in a same-sex relationship, but was recently tested at the beginning of the year for HIV and other sexually transmitted diseases and workup was negative. He is in a monogamous relationship but denies any other sexual contact. The patient denies any neck stiffness, vomiting, shortness of breath, chest pain, bowel changes, or any other acute complaints. Past Medical/Surgical History Medical Problems: (1) Anxiety (2) Anxiety (3) Chest pain (4) Constipation (5) Dehydration (6) Hemorrhoids (7) Laceration of colon (8) Non-cardiac chest pain (9) Non-cardiac chest pain (10) Pain in lower jaw (11) Pharyngitis (12) Rectal bleeding (13) Rectal bleeding (14) Vomiting Family History Cancer Social History Smoking Status: Never Smoker Smokeless Tobacco Use: No Alcohol Use: none Drug Use: none Marital Status: in relationship Occupational Status: [employer] student Immunizations History of Influenza Vaccine: Unknown History of Tetanus Vaccine?: Unknown History of Pneumococcal: Unknown History of Hepatitis B Vaccine: Unknown Allergies Coded Allergies: Prednisone (Verified Adverse Reaction, Severe, DIZZY, SHAKY, DISORIENTED, 09/09/17) Home Medications Scheduled Amphetamine-Dextroamphetamine 20MG (Adderall Xr 20MG), 20 MG PO DAILY Dexlansoprazole (Dexilant), 30 MG PO DAILY Scheduled PRN Albuterol Hfa (Ventolin Hfa), 2 PUFFS INH Q6H PRN for Shortness of Breath Ibuprofen (Advil), 200 MG PO UD PRN for Pain Lorazepam (Ativan), 0.5 MG PO Q6H PRN for Anxiety Pseudoephedrine Hcl (Sudafed Nasal Decongestan), 60 MG PO Q6H PRN for Sinus Congestion Review of Systems Constitutional: + fever, + chills, + sweats, + weakness, + fatigue, No weight loss Respiratory: + hemoptysis, No cough, No sputum, No wheezing, No shortness of breath Cardiovascular: No chest pain, No palpitations Abdomen: + pain, + GI bleeding (bright red blood, history of hemorrhoids), No nausea, No vomiting, No diarrhea, No constipation Neurologic: No memory loss, No numbness/tingling, No vertigo Physical Exam Vital Signs Date Time Temp Pulse Resp B/P (MAP) Pulse Ox O2 Delivery O2 Flow Rate FiO2 11/07/17 22:21 87 16 113/87 98 Room Air 11/07/17 21:10 85 16 113/61 97 Room Air 11/07/17 20:29 37.3 98 18 94/58 97 Room Air 11/07/17 19:32 102 20 102/66 98 Room Air 11/07/17 19:31 100 11/07/17 19:00 98 Room Air 11/07/17 18:30 37.6 111 20 120/80 92 Room Air General Appearance: WD/WN, no apparent distress Head: normocephalic, atraumatic Eyes: normal inspection, sclerae normal Neck: supple, no carotid bruits Respiratory/Chest: chest non-tender, lungs clear, normal breath sounds Cardiovascular: regular rate, rhythm, no edema, no gallop, no murmur Abdomen/GI: normal bowel sounds, soft, + tenderness (Epigastric, RUQ) Back: normal inspection, + right CVA tenderness Extremities/Musculoskelatal: no calf tenderness, no pedal edema Neurologic/Psych: alert, normal reflexes, oriented x 3 Diagnostics Laboratory Results Results Past 24 Hours Test 11/07/17 19:00 11/07/17 19:55 11/07/17 22:04 11/07/17 22:20 Range/Units White Blood Count 22.18 4.8-10.8 K/uL Red Blood Count 5.81 4.7-6.1 M/uL Hemoglobin 16.6 14.0-18.0 g/dL Hematocrit 49.1 42-52 % Mean Corpuscular Volume 84.5 80-100 fL Mean Corpuscular Hemoglobin 28.6 25-34 pg Mean Corpuscular Hemoglobin Concent 33.8 32-36 g/dl Platelet Count 196 130-400 K/uL Mean Platelet Volume 10.5 7.4-10.4 fL Neutrophils (%) (Auto) 87.5 % Lymphocytes (%) (Auto) 5.1 % Monocytes (%) (Auto) 6.8 % Eosinophils (%) (Auto) 0.0 % Basophils (%) (Auto) 0.1 % Neutrophils # (Auto) 19.41 1.4-6.5 K/uL Lymphocytes # (Auto) 1.13 1.2-3.4 K/uL Monocytes # (Auto) 1.51 0.11-0.59 K/uL Eosinophils # (Auto) 0.00 0-0.5 K/uL Basophils # (Auto) 0.02 0-0.2 K/uL RDW Standard Deviation 42.7 36.4-46.3 fL RDW Coefficient of Variation 13.9 11.5-14.5 % Immature Granulocyte % (Auto) 0.5 % Immature Granulocyte # (Auto) 0.11 0.00-0.02 K/uL Sodium Level 135 136-145 mmol/L Potassium Level 3.9 3.5-5.1 mmol/L Chloride Level 104 98-107 mmol/L Carbon Dioxide Level 23 21-32 mmol/L Anion Gap 8.0 3-11 mmol/L Blood Urea Nitrogen 11 7-18 mg/dl Creatinine 1.31 0.60-1.40 mg/dl Est Creatinine Clear Calc Drug Dose 69.9 ml/min Estimated GFR () 84.7 Estimated GFR (Non- 73.1 BUN/Creatinine Ratio 8.0 10-20 Random Glucose 115 70-99 mg/dl Lactic Acid Level 1.5 0.4-2.0 mmol/L Calcium Level 8.9 8.5-10.1 mg/dl Total Bilirubin 2.0 0.2-1 mg/dl Direct Bilirubin 0.4 0-0.2 mg/dl Aspartate Amino Transf (AST/SGOT) 122 15-37 U/L Alanine Aminotransferase (ALT/SGPT) 83 12-78 U/L Alkaline Phosphatase 78 45-117 U/L Total Protein 8.2 6.4-8.2 gm/dl Albumin 3.9 3.4-5.0 gm/dl Lipase 135 73-393 U/L Lyme Disease IgG Antibody NEG NEG Lyme Disease IgM Antibody EQUIVOCAL NEG Monoscreen NEG NEG Urine Color YELLOW Urine Appearance CLEAR CLEAR Urine pH 7.0 4.5-7.5 Urine Specific [place] 1.020 1.000-1.030 Urine Protein NEG NEG Urine Glucose (UA) NEG NEG Urine Ketones TRACE NEG Urine Occult Blood 1+ NEG Urine Nitrite NEG NEG Urine Bilirubin NEG NEG Urine Urobilinogen NEG NEG Urine Leukocyte Esterase NEG NEG Urine WBC (Auto) 1-5 0-5 /hpf Urine RBC (Auto) 10-30 0-4 /hpf Urine Hyaline Casts (Auto) 1-5 0-5 /lpf Urine Epithelial Cells (Auto) 5-10 0-5 /lpf Urine Bacteria (Auto) NEG NEG Ethyl Alcohol mg/dL < 3.0 0-3 mg/dl Influenza Type A Antigen Neg for Influ A NEG Influenza Type B Antigen Neg for Influ B NEG Test 11/07/17 22:48 11/07/17 22:59 Range/Units Microbiology Results 11/07/17 Blood Culture, Received Pending 11/07/17 Blood Culture, Received Pending 11/07/17 Group A Streptococcus Screen - Final, Resulted SPECIMEN NEGATIVE FOR GROUP A BETA ST... 11/07/17 Group A Streptococcus Screen (SOLITARIO), Resulted Pending Impression Assessment and Plan The patient is a 27-year-old male with a past medical history of asthma that presents to the ED with a 2 day history of fever Fever of Unknown Origin - Patient presented initially with fever and tachycardia with no clear source of infection - Lyme IgM was equivocally positive - Base on positive lyme result with elevate LFTs and borderline creatinine, concern for Anaplasmosis at this time - Rapid nfluenza A and B negative - CT Head, Neck, Abd/Pelvis, Gallbladder US, and CXR show no acute abnormalities - WBC 22,000 - Empiric Vancomycin and Rocephin started at this time, Dose of Cefepime in the ED - NSS @ 100 mls/hr - Blood Cultures x 2 - Anaplasmosis,Ehrlichiosis, and Lyme antibodies pending - Daily CBC, CMP - Tylenol as needed for Fever Elevated LFTs - AST>ALT, Elevated Bilirubin - Possibly secondary to Anaplasmosis - Tick Borne illness studies pending - MRCP - Autoimmune Hepatitis Studies: JACQUI, ESR, and Anti-Smoothe Muscle antibody testing ordered - Acute Hepatitis Panel - Daily CMP - Alcohol wnl History of Asthma - Well Controlled - Continue home PRN medications DVT - SCDs Code Status - Full Resuscitation Attending addendum: I have physically seen this patient, have supervised the medical residents activities, and agree with the H&P unless as otherwise noted. Assessment and Plan: Febrile illness/tachycardia/fatigue/myalgias-- Differential includes inflammatory versus subtypes of infection including viral , bacterial, spirochete. Lyme IgM equivocally positive, with symptoms that suggestive of possible anaplasmosis, and will treat empirically with ceftriaxone IV and vancomycin IV. NSS at 100 mils per hour. Confirmatory Lyme antibodies pending, along with anaplasmosis and ehrlichiosis. Abnormal LFTs-- AST greater than ALT/lung with elevated bilirubin. CT was nonrevealing. Order MRCP. Workup to include JACQUI, sed rate, anti-smooth muscle antibody, acute hepatitis profile, anaplasmosis as noted above. Alcohol level normal. Serial laboratories. Further notations and orders as above. Advanced Directives Existing Advance Directive: No Existing Living Will: No Existing Power of Home Theater Expert: No Resuscitation Status Full Code VTE Prophylaxis Will order VTE Prophylaxis: Yes Social Service Consult None Apply Resident Tracking Resident Involvement: Resident Care Provided Care Provided: Adult Hospital Medicine
[2017-11-07] MEDS ORDERED: ONDANSETRON INJ 2 MG/ML 2 ML VIAL IV PRN (23:45)
[2017-11-07] MEDS ORDERED: ALBUTEROL HFA 8 GM INHALER INH PRN (23:45)
[2017-11-08] VITALS (7 sets, daily range): BP systolic 86–120; BP diastolic 53–81; PULSE 77–101; TEMP 36.8–38.5; O2SAT 96–99; Ht 154.9 cm; Wt 71.8 kg
[2017-11-08] MEDS ORDERED: VANCOMYCIN IV 1,000 MG in SODIUM CHLORIDE 0.9% 250ML 250 ML IV SCH (00:30)
[2017-11-08] MEDS ORDERED: VANCOMYCIN CONSULT ACTIVE PRN (00:30)
[2017-11-08] MEDS: SODIUM CHLORIDE 0.9% 1000ML 1,000 ML IV SCH ×3 (01:12→20:09)
[2017-11-08] MEDS ORDERED: VANCOMYCIN IV 1,750 MG in SODIUM CHLORIDE 0.9% 500ML 500 ML IV SCH (01:30)
[2017-11-08] MEDS: ACETAMINOPHEN 325 MG TAB PO PRN ×2 (02:18→14:32)
[2017-11-08] MEDS ORDERED: IBUPROFEN 600 MG TAB PO STA (03:52)
[2017-11-08] MEDS ORDERED: SODIUM CHLORIDE 0.9% 1000ML 1,000 ML IV SCH (04:00)
[2017-11-08 08:19] LABS: BASO % 0.1 %; BASO ABS # 0.02 K/uL (0-0.2); HEMATOCRIT 43.2 % (42-52); HEMOGLOBIN 14.2 g/dL (14.0-18.0); IG# 0.06 K/uL (0.00-0.02); LYMPH % 10.2 %; LYMPH ABS # 1.69 K/uL (1.2-3.4); MEAN CELL VOLUME 86.1 fL (80-100); MEAN CORPUSCULAR HEMOGLOBIN 28.3 pg (25-34); MEAN CORPUSCULAR HGB CONC 32.9 g/dl (32-36); MEAN PLATELET VOLUME 10.2 fL (7.4-10.4); MONO % 5.9 %; MONO ABS # 0.98 K/uL (0.11-0.59); NEUT % 83.4 %; NEUT ABS # 13.81 K/uL (1.4-6.5); PLATELET COUNT 159 K/uL (130-400); RED CELL DISTRIBUTION WIDTH CV 14.3 % (11.5-14.5); RED CELL DISTRIBUTION WIDTH SD 44.4 fL (36.4-46.3); WHITE BLOOD COUNT 16.56 K/uL (4.8-10.8)
[2017-11-08 08:44] LABS: CALCIUM 7.9 mg/dl (8.5-10.1); CREATININE 0.99 mg/dl (0.60-1.40); POTASSIUM 3.9 mmol/L (3.5-5.1); TOTAL PROTEIN 6.3 gm/dl (6.4-8.2)
[2017-11-08 08:46] LABS: CREATININE 0.97 mg/dl (0.60-1.40)
[2017-11-08] MEDS: DOXYCYCLINE HYCLATE 100 MG CAP PO SCH ×2 (09:33→20:59)
[2017-11-08] MEDS: CEFTRIAXONE SOD INJ 2,000 MG in DEXTROSE 5% 50ML 50 ML IV SCH (09:33)
[2017-11-08] MEDS ORDERED: VANCOMYCIN IV 1,000 MG in SODIUM CHLORIDE 0.9% 250ML 250 ML IV ONE (12:00)
--- NOTE | 2017-11-08 13:32 | DIAGNOSTIC IMAGING REPORT ---
MRCP CLINICAL HISTORY: Abdominal pain. Fevers. Elevated liver function tests. COMPARISON STUDY: Right upper quadrant ultrasound and CT of the abdomen and pelvis November 07, 2017. TECHNIQUE: Utilizing a 1.5 Sheila magnet and dedicated coil, multiplanar, multiecho imaging of the abdomen was performed without intravenous contrast. FINDINGS: No intra or extrahepatic biliary ductal dilatation is present. No common bile duct calculus is noted. The course and caliber of the main pancreatic duct is normal. There is no peripancreatic infiltration or fluid. No hepatic lesions are identified on this unenhanced exam. There is no abdominal ascites or lymphadenopathy. Unenhanced images of the spleen, adrenal glands and kidneys are normal. Caliber and wall thickness of small and large bowel are normal. IMPRESSION: Normal MRCP. Electronically signed by: Lenny Goins M.D. 11/08/2017 1:30 PM Dictated Date/Time: 11/08/2017 1:25 PM
[2017-11-08] MEDS ORDERED: COUGH DROP (SUGAR FREE) LOZ 24 LOZ/1 BOX LOZ PRN (14:15)
[2017-11-08] MEDS ORDERED: SODIUM CHLORIDE 0.65% NA SOLN 45 ML (OCEAN) ONE (15:20)
[2017-11-08] MEDS ORDERED: SODIUM CHLORIDE 0.65% NA SOLN 45 ML (OCEAN) PRN (15:45)
--- NOTE | 2017-11-08 16:05 | Pharmacy Progress Note ---
Pharmacy Abx Dose Short Note Date of Service Nov 08, 2017. Assessment & Plan Assessment * 27 year old male receiving Vancomcyin for treatment of empiric tx. * Patient has 2 day history of fever assoc. with sweats/chills/sore throat/ sensation of head fullness. 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 Thank you.
--- NOTE | 2017-11-08 16:44 | Family Medicine Progress Note ---
Progress Note Date of Service Nov 08, 2017. Subjective Pt evaluation today including: conversation w/ patient, conversation w/ family , physical exam, chart review, lab review, review of studies, review of inpatient medication list Patient was seen and evaluated today. He has no new complaints. He does not have any chest pain, shortness of breath, calf pain, nausea, vomiting diarrhea. He still has sore throat, fatigue, generalized body aches, sinus congestion, sharp intermittent RUQ and LUQ pain with episodes lasting seconds. His fever has resolved with Tylenol here. Constitutional: + fever, + chills, + fatigue Eyes: No worsening of vision, No eye pain ENT: + nasal symptoms, + sore throat, No unusual epistaxis, No trouble swallowing Respiratory: No cough, No wheezing, No shortness of breath Cardiovascular: No chest pain, No edema, No palpitations Abdomen: + pain (RUQ and LUQ both presenting complaints in ED) Musculoskeletal: No joint pain, No muscle pain, No swelling, No calf pain Male : No dysuria, No urinary frequency, No hematuria Neurologic: No weakness, No numbness/tingling Endo: + fatigue Skin: No rash, No new/changing skin lesions All Other Systems: Reviewed and Negative Medications Current Inpatient Medications Medications (Trade) Dose Ordered Sig/Leidy Route Start Time Stop Time Status Last Admin Dose Admin Ioversol (Optiray 320) 100 ml UD PRN IV 11/07/17 22:30 11/11/17 22:29 Acetaminophen (Tylenol Tab) 650 mg Q4H PRN PO 11/07/17 23:45 12/07/17 23:44 11/08/17 14:32 650 MG Ondansetron HCl (Zofran Inj) 4 mg Q6H PRN IV 11/07/17 23:45 12/07/17 23:44 Albuterol (Ventolin Hfa Inhaler) 2 puffs Q6H PRN INH 11/07/17 23:45 12/07/17 23:44 Lorazepam (Ativan Tab) 0.5 mg Q6H PRN PO 11/07/17 23:45 12/07/17 23:44 Vancomycin HCl (Consult) 1 ea UD PRN N/A 11/08/17 00:30 12/08/17 00:29 Ceftriaxone Sodium 2000 mg/ Dextrose 70 ml @ 100 mls/hr Q24H IV 11/08/17 09:00 11/10/17 08:59 11/08/17 09:33 100 MLS/HR Sodium Chloride 1,000 ml @ 100 mls/hr Q10H IV 11/08/17 00:30 12/08/17 00:29 11/08/17 01:12 100 MLS/HR Doxycycline Hyclate (Vibramycin Cap) 100 mg BID PO 11/08/17 09:00 11/18/17 08:59 11/08/17 09:33 100 MG Menthol (Nice Bryan) 1 bryan PRN PRN BRYAN 11/08/17 14:15 12/08/17 14:14 11/08/17 15:23 1 BRYAN Sodium Chloride ([place] Nasal [place]) 1 sprays PRN PRN NA 11/08/17 15:45 12/08/17 15:44 Vancomycin HCl 1000 mg/Sodium Chloride 270 ml @ 125 mls/hr Q10H IV 11/09/17 00:00 11/10/17 13:59 Objective Vital Signs Date Time Temp Pulse Resp B/P (MAP) Pulse Ox O2 Delivery O2 Flow Rate FiO2 11/08/17 13:40 97 Room Air 11/08/17 13:40 36.8 97 20 116/81 (93) 99 Room Air 11/08/17 13:32 37.1 77 18 99 11/08/17 08:50 Room Air 11/08/17 08:14 37.1 77 18 110/74 (86) 99 Room Air 11/08/17 05:13 37.3 11/08/17 04:00 Room Air 11/08/17 03:46 38.5 101 18 86/53 (64) 96 Room Air 11/08/17 00:43 37.0 98 18 120/78 98 Room Air 11/08/17 00:33 95 16 97/82 98 11/07/17 23:40 93 11/07/17 23:30 96 16 106/84 96 Room Air 11/07/17 22:21 87 16 113/87 98 Room Air 11/07/17 21:10 85 16 113/61 97 Room Air 11/07/17 20:29 37.3 98 18 94/58 97 Room Air 11/07/17 19:32 102 20 102/66 98 Room Air 11/07/17 19:31 100 11/07/17 19:00 98 Room Air 11/07/17 18:30 37.6 111 20 120/80 92 Room Air Physical Exam General Appearance: WD/WN Eyes: normal inspection, EOMI, sclerae normal ENT: + pharyngeal erythema Neck: supple, no adenopathy, thyroid normal, no JVD, trachea midline Respiratory/Chest: lungs clear, normal breath sounds, no respiratory distress, no accessory muscle use Cardiovascular: regular rate, rhythm, no edema, no gallop, no murmur Abdomen: normal bowel sounds, non tender, soft Extremities: normal range of motion, non-tender, normal inspection, no pedal edema, no calf tenderness Neurologic/Psychiatric: no motor/sensory deficits, alert, normal mood/affect, oriented x 3 Skin: normal color, warm/dry, no rash Laboratory Results 11/08/17 08:01 Red Blood Count 5.02, Mean Corpuscular Volume 86.1, Mean Corpuscular Hemoglobin 28.3, Mean Corpuscular Hemoglobin Concent 32.9, Mean Platelet Volume 10.2, Neutrophils (%) (Auto) 83.4, Lymphocytes (%) (Auto) 10.2, Monocytes (%) (Auto) 5.9, Eosinophils (%) (Auto) 0.0, Basophils (%) (Auto) 0.1, Neutrophils # (Auto) 13.81, Lymphocytes # (Auto) 1.69, Monocytes # (Auto) 0.98, Eosinophils # (Auto) 0.00, Basophils # (Auto) 0.02 11/08/17 08:01 Test 11/07/17 19:00 11/07/17 19:55 11/07/17 22:04 11/07/17 22:20 Erythrocyte Sedimentation Rate 22 mm/hr (0-14) Lactic Acid Level 1.5 mmol/L (0.4-2.0) Direct Bilirubin 0.4 mg/dl (0-0.2) Lipase 135 U/L (73-393) Lyme Disease IgG Antibody NEG (NEG) Monoscreen NEG (NEG) Urine Color YELLOW Urine Appearance CLEAR (CLEAR) Urine pH 7.0 (4.5-7.5) Urine Specific [place] 1.020 (1.000-1.030) Urine Protein NEG (NEG) Urine Glucose (UA) NEG (NEG) Urine Ketones TRACE (NEG) Urine Occult Blood 1+ (NEG) Urine Nitrite NEG (NEG) Urine Bilirubin NEG (NEG) Urine Urobilinogen NEG (NEG) Urine Leukocyte Esterase NEG (NEG) Urine WBC (Auto) 1-5 /hpf (0-5) Urine RBC (Auto) 10-30 /hpf (0-4) Urine Hyaline Casts (Auto) 1-5 /lpf (0-5) Urine Epithelial Cells (Auto) 5-10 /lpf (0-5) Urine Bacteria (Auto) NEG (NEG) Ethyl Alcohol mg/dL < 3.0 mg/dl (0-3) Influenza Type A Antigen Neg for Influ A (NEG) Influenza Type B Antigen Neg for Influ B (NEG) Test 11/07/17 23:37 11/08/17 08:01 White Blood Count 16.56 K/uL (4.8-10.8) Red Blood Count 5.02 M/uL (4.7-6.1) Hemoglobin 14.2 g/dL (14.0-18.0) Hematocrit 43.2 % (42-52) Mean Corpuscular Volume 86.1 fL (80-100) Mean Corpuscular Hemoglobin 28.3 pg (25-34) Mean Corpuscular Hemoglobin Concent 32.9 g/dl (32-36) Platelet Count 159 K/uL (130-400) Mean Platelet Volume 10.2 fL (7.4-10.4) Neutrophils (%) (Auto) 83.4 % Lymphocytes (%) (Auto) 10.2 % Monocytes (%) (Auto) 5.9 % Eosinophils (%) (Auto) 0.0 % Basophils (%) (Auto) 0.1 % Neutrophils # (Auto) 13.81 K/uL (1.4-6.5) Lymphocytes # (Auto) 1.69 K/uL (1.2-3.4) Monocytes # (Auto) 0.98 K/uL (0.11-0.59) Eosinophils # (Auto) 0.00 K/uL (0-0.5) Basophils # (Auto) 0.02 K/uL (0-0.2) RDW Standard Deviation 44.4 fL (36.4-46.3) RDW Coefficient of Variation 14.3 % (11.5-14.5) Immature Granulocyte % (Auto) 0.4 % Immature Granulocyte # (Auto) 0.06 K/uL (0.00-0.02) Anion Gap 9.0 mmol/L (3-11) Est Creatinine Clear Calc Drug Dose 95.5 ml/min Estimated GFR () 121.8 Estimated GFR (Non- 105.1 BUN/Creatinine Ratio 8.4 (10-20) Calcium Level 7.9 mg/dl (8.5-10.1) Total Bilirubin 1.5 mg/dl (0.2-1) Aspartate Amino Transf (AST/SGOT) 75 U/L (15-37) Alanine Aminotransferase (ALT/SGPT) 60 U/L (12-78) Alkaline Phosphatase 53 U/L (45-117) Total Protein 6.3 gm/dl (6.4-8.2) Albumin 3.0 gm/dl (3.4-5.0) Globulin 3.3 gm/dl (2.5-4.0) Albumin/Globulin Ratio 0.9 (0.9-2) Assessment and Plan Febrile illness, tachycardia, fatigue, myalgias, sore throat, Leukocytosis - Patient presented initially with fever and tachycardia with no clear source of infection - Lyme IgM was equivocally positive - Base on positive lyme result with elevate LFTs and borderline creatinine, concern for Anaplasmosis at this time - Rapid nfluenza A and B negative - CT Head, Neck, Abd/Pelvis, Gallbladder US, and CXR show no acute abnormalities - WBC 22,000 in the ED but trended down to 16.56 today - Empiric Vancomycin and Rocephin started at this time, Dose of Cefepime in the ED. Doxycycline was added for tick borne illness of Lyme or Anaplasmosis. - NSS @ 100 mls/hr - Blood Cultures x 2 and pending - Anaplasmosis,Ehrlichiosis, and Lyme antibodies pending - ESR = 22, WBC trended down from admit 22.18 to this morning 16.56 - Daily CBC, CMP - Tylenol as needed for Fever - throat lozenges for sore throat Elevated LFTs - AST (122) >ALT (83), Elevated Bilirubin on admit; today both AST and ALT trended down, with AST at 75 and ALT within normal limits at 60. Bilirubin also trended down. - Possibly secondary to Anaplasmosis - Tick Borne illness studies pending - MRCP - Autoimmune Hepatitis Studies: JACQUI, ESR, and Anti-Smoothe Muscle antibody testing ordered - Acute Hepatitis Panel - Daily CMP - Alcohol wnl History of Asthma - Well Controlled - Continue home PRN medications Chronic GERD - patient prefers to use home Dexilant since hospital pharmacy does not carry, okay with using home medication as directed DVT - SCDs Code Status - Full Resuscitation Continued [facility] stay due to: abnormal vital signs, other (studies for illness workup are pending)
[2017-11-08] MEDS: LORAZEPAM 0.5 MG TAB PO PRN (21:58)
[2017-11-09] MEDS: VANCOMYCIN IV 1,000 MG in SODIUM CHLORIDE 0.9% 250ML 250 ML IV SCH ×2 (00:23→10:13)
[2017-11-09 03:42] VITALS: TEMP 36.9
[2017-11-09] MEDS: SODIUM CHLORIDE 0.9% 1000ML 1,000 ML IV SCH ×2 (04:25→16:35)
--- NOTE | 2017-11-09 06:48 | Family Medicine Progress Note ---
Progress Note Date of Service Nov 09, 2017. Subjective Pt evaluation today including: conversation w/ patient PO Intake: Adequate Voiding: no voiding problems Abdirahman Valencia is a 27yo M on HD#2 admitted with 2 days of fever to 103-104*F, myalgias, sore throat, with initial workup revealing for leukocytosis with left shift, lyme IgM+ and elevated transaminases. He was placed on vanco, ceftriaxone , and doxy on admit with BCx2 drawn and followup ehrlichia/anaplasmosis/ burgdorferi labs were sent. 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 He had one episode of nausea/vomiting. Abdirahman reports he feels achy and tired this morning. He reports that was was nauseous and dizzy last night after eating 3 popsicles and subsequently vomited once but was able to eat 1/2 his breakfast this morning without nausea. There was no blood or bile in his emesis. He slept OK overnight without chills or sweats, but is sweaty this morning. Denies chest pain, difficulty breathing, shaking chills. He endorses diffuse body/muscle aches and some headache. He notes his muscle aches have gotten a little better, but joint pain in both his elbows and knees has gotten a little worse and they are very tender to palpation. He continues to feel like he has a head cold with some sinus congestion, sore throat. He denies any rash or skin change. He has not noticed any lymphadenopathy. Constitutional: + fever Eyes: No worsening of vision, No eye pain, No discharge, No diplopia ENT: + nasal symptoms, + sore throat, No hearing loss Respiratory: + cough, No sputum, No wheezing, No shortness of breath Cardiovascular: No chest pain, No palpitations Abdomen: + nausea, + vomiting, No pain, No diarrhea, No constipation Musculoskeletal: + joint pain, + muscle pain, No swelling Neurologic: No paralysis, No weakness, No numbness/tingling, No vertigo Endo: + fatigue Skin: No rash Medications Current Inpatient Medications Medications (Trade) Dose Ordered Sig/Leidy Route Start Time Stop Time Status Last Admin Dose Admin Ioversol (Optiray 320) 100 ml UD PRN IV 11/07/17 22:30 11/11/17 22:29 Acetaminophen (Tylenol Tab) 650 mg Q4H PRN PO 11/07/17 23:45 12/07/17 23:44 11/09/17 08:10 650 MG Ondansetron HCl (Zofran Inj) 4 mg Q6H PRN IV 11/07/17 23:45 12/07/17 23:44 11/08/17 21:58 4 MG Albuterol (Ventolin Hfa Inhaler) 2 puffs Q6H PRN INH 11/07/17 23:45 12/07/17 23:44 Lorazepam (Ativan Tab) 0.5 mg Q6H PRN PO 11/07/17 23:45 12/07/17 23:44 11/08/17 21:58 0.5 MG Vancomycin HCl (Consult) 1 ea UD PRN N/A 11/08/17 00:30 12/08/17 00:29 Ceftriaxone Sodium 2000 mg/ Dextrose 70 ml @ 100 mls/hr Q24H IV 11/08/17 09:00 11/10/17 08:59 11/09/17 09:23 100 MLS/HR Sodium Chloride 1,000 ml @ 100 mls/hr Q10H IV 11/08/17 00:30 12/08/17 00:29 11/09/17 04:25 100 MLS/HR Doxycycline Hyclate (Vibramycin Cap) 100 mg BID PO 11/08/17 09:00 11/18/17 08:59 11/09/17 08:06 100 MG Menthol (Nice Bryan) 1 bryan PRN PRN BRYAN 11/08/17 14:15 12/08/17 14:14 11/08/17 15:23 1 BRYAN Sodium Chloride ([place] Nasal [place]) 1 sprays PRN PRN NA 11/08/17 15:45 12/08/17 15:44 Vancomycin HCl 1000 mg/Sodium Chloride 270 ml @ 125 mls/hr Q10H IV 11/09/17 00:00 11/10/17 13:59 11/09/17 10:13 125 MLS/HR Objective Vital Signs Date Time Temp Pulse Resp B/P (MAP) Pulse Ox O2 Delivery O2 Flow Rate FiO2 11/09/17 08:30 Room Air 11/09/17 07:37 36.9 88 16 92/60 (71) 99 Room Air 11/09/17 03:42 36.9 11/09/17 00:15 Room Air 11/08/17 22:41 37.8 78 18 105/69 (81) 98 Room Air 11/08/17 16:00 Room Air 11/08/17 13:40 97 Room Air 11/08/17 13:40 36.8 97 20 116/81 (93) 99 Room Air 11/08/17 13:32 37.1 77 18 99 Physical Exam General Appearance: no apparent distress Eyes: PERRL, EOMI, sclerae normal ENT: hearing grossly normal, + pertinent finding (endorses some sore throat) Neck: supple, no adenopathy, no JVD, trachea midline Respiratory/Chest: lungs clear, normal breath sounds, no respiratory distress, no accessory muscle use Cardiovascular: regular rate, rhythm, no edema, no gallop, no JVD, no murmur Abdomen: normal bowel sounds, non tender, soft Skin: normal color, no rash, + diaphoresis Lymphatic: no adenopathy Notes: Extremity: Knees tender to palpation bilaterally. Elbows tender to palpation bilaterally. Mild tenderness to palpation of muscles in extremities. No knee/ elbow swelling. No joint erythema. No rash present. Patellar/Bicepts DTR 2+ bilaterally, no clonus. Laboratory Results 11/09/17 08:19 Red Blood Count 4.99, Mean Corpuscular Volume 85.8, Mean Corpuscular Hemoglobin 28.3, Mean Corpuscular Hemoglobin Concent 32.9, Mean Platelet Volume 10.3, Neutrophils (%) (Auto) 71.2, Lymphocytes (%) (Auto) 17.5, Monocytes (%) (Auto) 10.7, Eosinophils (%) (Auto) 0.3, Basophils (%) (Auto) 0.1, Neutrophils # (Auto ) 9.95, Lymphocytes # (Auto) 2.45, Monocytes # (Auto) 1.50, Eosinophils # (Auto ) 0.04, Basophils # (Auto) 0.02 11/09/17 08:19 Test 11/09/17 08:19 White Blood Count 13.99 K/uL (4.8-10.8) Red Blood Count 4.99 M/uL (4.7-6.1) Hemoglobin 14.1 g/dL (14.0-18.0) Hematocrit 42.8 % (42-52) Mean Corpuscular Volume 85.8 fL (80-100) Mean Corpuscular Hemoglobin 28.3 pg (25-34) Mean Corpuscular Hemoglobin Concent 32.9 g/dl (32-36) Platelet Count 185 K/uL (130-400) Mean Platelet Volume 10.3 fL (7.4-10.4) Neutrophils (%) (Auto) 71.2 % Lymphocytes (%) (Auto) 17.5 % Monocytes (%) (Auto) 10.7 % Eosinophils (%) (Auto) 0.3 % Basophils (%) (Auto) 0.1 % Neutrophils # (Auto) 9.95 K/uL (1.4-6.5) Lymphocytes # (Auto) 2.45 K/uL (1.2-3.4) Monocytes # (Auto) 1.50 K/uL (0.11-0.59) Eosinophils # (Auto) 0.04 K/uL (0-0.5) Basophils # (Auto) 0.02 K/uL (0-0.2) RDW Standard Deviation 45.2 fL (36.4-46.3) RDW Coefficient of Variation 14.4 % (11.5-14.5) Immature Granulocyte % (Auto) 0.2 % Immature Granulocyte # (Auto) 0.03 K/uL (0.00-0.02) Anion Gap 6.0 mmol/L (3-11) Est Creatinine Clear Calc Drug Dose 99.6 ml/min Estimated GFR () 128.1 Estimated GFR (Non- 110.5 BUN/Creatinine Ratio 4.7 (10-20) Calcium Level 9.0 mg/dl (8.5-10.1) Total Bilirubin 1.0 mg/dl (0.2-1) Aspartate Amino Transf (AST/SGOT) 47 U/L (15-37) Alanine Aminotransferase (ALT/SGPT) 51 U/L (12-78) Alkaline Phosphatase 57 U/L (45-117) Total Protein 7.1 gm/dl (6.4-8.2) Albumin 3.2 gm/dl (3.4-5.0) Globulin 3.9 gm/dl (2.5-4.0) Albumin/Globulin Ratio 0.8 (0.9-2) Assessment and Plan Abdirahman Valencia is a 27yo M on HD#2 admitted with 2 days of fever to 103-104*F, myalgias, sore throat, with initial workup revealing for leukocytosis with left shift, lyme IgM+ and elevated transaminases. He was placed on vanco, ceftriaxone , and doxy on admit with BCx2 drawn and followup ehrlichia/anaplasmosis/ burgdorferi labs were sent. His blood cultures are negative at 48 hours. His rapid strep and strep culture are negative. He was briefly febrile overnight. - Fever of Undetermined Origin w/ Leukocytosis + Left Shift - Leukocytosis continuing to trend down to 13.9 from 22 on admit - Briefly febrile overnight - Ehrlichia, anaplasma, and burgdorferi panels pending - +Peripheral smear to look for evidence of erlichiosis - Continue doxycycline 100mg BID - BCx2, flu A, flu B, and throat culture all negative - D/C ceftriaxone and vancomycin given negative cultures. - CT head, neck, abd/pelvis, gallbladder US, and CXR all show no acute abnormalities. 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 Jones during the history and exam. I discussed the case with the resident and agree with the findings and plan as documented in the note. Patient notes he is feeling better this afternoon. He is seated at bedside working on his PC. He notes that the knee and elbow pain is better with Tylenol. EXAM Alert. Non toxic appearing. Afebrile. Skin: [place]. Mucus membranes moist. Lungs: non labored CV: regular EXT: No edema. IMPRESSION & PLAN Febrile illness, preliminary Lyme positive, consider anaplasmosis Agree with discontinuing vancomycin and Rocephin given negative cultures. Continue doxycycline Await Lyme confirmation Will have lab review smear for anaplasmosis Documented By: Jeff Cardona Continued [facility] stay due to: fever
[2017-11-09 07:37] VITALS: BP 92/60; PULSE 88; TEMP 36.9; O2SAT 99
[2017-11-09] MEDS: DOXYCYCLINE HYCLATE 100 MG CAP PO SCH ×2 (08:06→19:30)
[2017-11-09] MEDS: ACETAMINOPHEN 325 MG TAB PO PRN ×2 (08:10→23:03)
[2017-11-09 08:32] LABS: BASO % 0.1 %; BASO ABS # 0.02 K/uL (0-0.2); EOS % 0.3 %; EOS ABS # 0.04 K/uL (0-0.5); HEMATOCRIT 42.8 % (42-52); HEMOGLOBIN 14.1 g/dL (14.0-18.0); IG# 0.03 K/uL (0.00-0.02); LYMPH % 17.5 %; LYMPH ABS # 2.45 K/uL (1.2-3.4); MEAN CELL VOLUME 85.8 fL (80-100); MEAN CORPUSCULAR HEMOGLOBIN 28.3 pg (25-34); MEAN CORPUSCULAR HGB CONC 32.9 g/dl (32-36); MEAN PLATELET VOLUME 10.3 fL (7.4-10.4); MONO % 10.7 %; NEUT % 71.2 %; NEUT ABS # 9.95 K/uL (1.4-6.5); PLATELET COUNT 185 K/uL (130-400); RED CELL DISTRIBUTION WIDTH CV 14.4 % (11.5-14.5); RED CELL DISTRIBUTION WIDTH SD 45.2 fL (36.4-46.3); WHITE BLOOD COUNT 13.99 K/uL (4.8-10.8)
[2017-11-09 09:14] LABS: ALBUMIN 3.2 gm/dl (3.4-5.0); CREATININE 0.93 mg/dl (0.60-1.40); POTASSIUM 3.8 mmol/L (3.5-5.1); TOTAL PROTEIN 7.1 gm/dl (6.4-8.2)
[2017-11-09] MEDS: CEFTRIAXONE SOD INJ 2,000 MG in DEXTROSE 5% 50ML 50 ML IV SCH (09:23)
[2017-11-09 16:00] VITALS: BP 104/67; PULSE 75; TEMP 36.7; O2SAT 99
[2017-11-09] MEDS: LORAZEPAM 0.5 MG TAB PO PRN (23:02)
[2017-11-09 23:06] VITALS: BP 116/71; PULSE 71; TEMP 36.9; O2SAT 100
[2017-11-10] MEDS: SODIUM CHLORIDE 0.9% 1000ML 1,000 ML IV SCH (03:24)
--- NOTE | 2017-11-10 06:41 | Family Medicine Progress Note ---
Progress Note Date of Service Nov 10, 2017. Subjective Pt evaluation today including: conversation w/ patient Pain: 3/10, mostly in knees/elbows bilat. Improved from yesterday and tolerable. PO Intake: Good, -Nausea/-Vomiting Voiding: no voiding problems, no incontinence Abdirahman reports he feels well today. He reports his muscle aches have completely resolved. He reports his joints (knees and elbows) are still slightly sore but greatly improved from yesterday. He rates is joint pain as a 3/10 compared to 8 10 yesterday. Denies difficulty breathing, chest pain, chest pressure, fever, chills, sweats overnight. He is eating well, has had breakfast at time of exam, and denies any nausea. No emesis since two nights ago. He has concerns about going home prior to his serologies coming back. His throat is still sore, but improved from yesterday. He notes his sore through preceded his other symptoms by ~2 days. No other questions or concerns today. Had a normal bowel movement last night. No voiding difficulties or problems. Appendum 11/10/17 @ 1500hrs Abdirahman notes that his nose has become itchy and painful to the touch. He has noticed the development of painful bumps on his left nare that were not present last night. He has previously had multiple HSV reactivations which normally affect his upper lip for which he normally uses an acyclovir cream which immediately dries out the lesions. He has attempted to use his acyclovir cream today but feels it is not helping like it usually does. He has had new sexual partners since his last screening a year and a half ago. He is in a monogamous same sex relationship. Constitutional: No fever, No chills, No sweats, No fatigue ENT: + sore throat Respiratory: No cough, No sputum, No shortness of breath Cardiovascular: No chest pain Abdomen: No pain, No nausea, No vomiting, No diarrhea, No constipation Musculoskeletal: + joint pain, No muscle pain Male : No dysuria Neurologic: No weakness, No numbness/tingling Skin: No rash Medications Current Inpatient Medications Medications (Trade) Dose Ordered Sig/Leidy Route Start Time Stop Time Status Last Admin Dose Admin Ioversol (Optiray 320) 100 ml UD PRN IV 11/07/17 22:30 11/11/17 22:29 Acetaminophen (Tylenol Tab) 650 mg Q4H PRN PO 11/07/17 23:45 12/07/17 23:44 11/09/17 23:03 650 MG Ondansetron HCl (Zofran Inj) 4 mg Q6H PRN IV 11/07/17 23:45 12/07/17 23:44 11/08/17 21:58 4 MG Albuterol (Ventolin Hfa Inhaler) 2 puffs Q6H PRN INH 11/07/17 23:45 12/07/17 23:44 Lorazepam (Ativan Tab) 0.5 mg Q6H PRN PO 11/07/17 23:45 12/07/17 23:44 11/09/17 23:02 0.5 MG Doxycycline Hyclate (Vibramycin Cap) 100 mg BID PO 11/08/17 09:00 11/18/17 08:59 11/10/17 08:34 100 MG Menthol (Nice Bryan) 1 bryan PRN PRN BRYAN 11/08/17 14:15 12/08/17 14:14 11/08/17 15:23 1 BRYAN Sodium Chloride ([place] Nasal [place]) 1 sprays PRN PRN NA 11/08/17 15:45 12/08/17 15:44 Resident Involvement: Resident Care Provided Care Provided: Adult Hospital Medicine Objective Vital Signs Date Time Temp Pulse Resp B/P (MAP) Pulse Ox O2 Delivery O2 Flow Rate FiO2 11/10/17 09:31 Room Air 11/10/17 09:29 36.7 78 20 102/63 (76) 99 Room Air 11/10/17 07:44 36.4 87 26 90/61 (71) 96 Room Air 11/09/17 23:06 36.9 71 18 116/71 (86) 100 Room Air 11/09/17 20:00 Room Air 11/09/17 16:00 Room Air 11/09/17 16:00 36.7 75 18 104/67 (79) 99 Room Air Physical Exam General Appearance: WD/WN, no apparent distress Eyes: normal inspection, PERRL ENT: + nasal congestion, + pertinent finding (Small pustules present on L nare mucous membrane border. Small pustule present above L le border. ) Neck: supple, no adenopathy, thyroid normal, no JVD, trachea midline Respiratory/Chest: chest non-tender, lungs clear, normal breath sounds, no respiratory distress, no accessory muscle use Cardiovascular: regular rate, rhythm, no edema, no gallop, no JVD, no murmur Abdomen: normal bowel sounds, non tender, soft, no organomegaly Extremities: non-tender, normal inspection, no pedal edema, normal capillary refill Neurologic/Psychiatric: no motor/sensory deficits, normal mood/affect, oriented x 3 Skin: normal color, warm/dry, no rash Laboratory Results 11/10/17 07:56 Red Blood Count 5.15, Mean Corpuscular Volume 85.0, Mean Corpuscular Hemoglobin 28.2, Mean Corpuscular Hemoglobin Concent 33.1, Mean Platelet Volume 9.9, Neutrophils (%) (Auto) 56.8, Lymphocytes (%) (Auto) 31.4, Monocytes (%) (Auto) 10.0, Eosinophils (%) (Auto) 1.4, Basophils (%) (Auto) 0.3, Neutrophils # (Auto ) 4.21, Lymphocytes # (Auto) 2.32, Monocytes # (Auto) 0.74, Eosinophils # (Auto ) 0.10, Basophils # (Auto) 0.02 11/10/17 07:56 Test 11/10/17 07:56 11/10/17 11:25 White Blood Count 7.40 K/uL (4.8-10.8) Red Blood Count 5.15 M/uL (4.7-6.1) Hemoglobin 14.5 g/dL (14.0-18.0) Hematocrit 43.8 % (42-52) Mean Corpuscular Volume 85.0 fL (80-100) Mean Corpuscular Hemoglobin 28.2 pg (25-34) Mean Corpuscular Hemoglobin Concent 33.1 g/dl (32-36) Platelet Count 198 K/uL (130-400) Mean Platelet Volume 9.9 fL (7.4-10.4) Neutrophils (%) (Auto) 56.8 % Lymphocytes (%) (Auto) 31.4 % Monocytes (%) (Auto) 10.0 % Eosinophils (%) (Auto) 1.4 % Basophils (%) (Auto) 0.3 % Neutrophils # (Auto) 4.21 K/uL (1.4-6.5) Lymphocytes # (Auto) 2.32 K/uL (1.2-3.4) Monocytes # (Auto) 0.74 K/uL (0.11-0.59) Eosinophils # (Auto) 0.10 K/uL (0-0.5) Basophils # (Auto) 0.02 K/uL (0-0.2) RDW Standard Deviation 43.9 fL (36.4-46.3) RDW Coefficient of Variation 14.0 % (11.5-14.5) Immature Granulocyte % (Auto) 0.1 % Immature Granulocyte # (Auto) 0.01 K/uL (0.00-0.02) Anion Gap 7.0 mmol/L (3-11) Est Creatinine Clear Calc Drug Dose 100.7 ml/min Estimated GFR () 129.8 Estimated GFR (Non- 112.0 BUN/Creatinine Ratio 10.3 (10-20) Calcium Level 8.7 mg/dl (8.5-10.1) Total Bilirubin 0.9 mg/dl (0.2-1) Aspartate Amino Transf (AST/SGOT) 29 U/L (15-37) Alanine Aminotransferase (ALT/SGPT) 47 U/L (12-78) Alkaline Phosphatase 56 U/L (45-117) Total Protein 7.2 gm/dl (6.4-8.2) Albumin 3.2 gm/dl (3.4-5.0) Globulin 4.0 gm/dl (2.5-4.0) Albumin/Globulin Ratio 0.8 (0.9-2) Anti-Streptolysin O Antibody Screen POS IU/ml (<200 IU) Anti-Streptolysin O Antibody Titer 200 IU/ml (<200 IU) Date/Time Source Procedure Growth Status 11/09/17 18:58 Blood Parasitology Test - Final Complete Assessment and Plan Abdirahman Valencia is a 27yo M on HD#3 admitted with 2 days of fever to 103-104*F, myalgias, sore throat, with initial workup revealing for leukocytosis with left shift, lyme IgM+ and elevated transaminases. He was placed on vanco, ceftriaxone , and doxy on admit with BCx2 drawn and followup ehrlichia/anaplasmosis/ burgdorferi labs were sent. His blood cultures were negative at 48 hours. His rapid strep and strep culture were negative. No fevers overnight. His abx were narrowed to doxy yesterday. - Fever of Undetermined Origin w/ Leukocytosis + Left Shift, resolved - Leukocytosis resolved - Afebrile for 24 hours - Ehrlichia, anaplasma, and burgdorferi panels pending - Peripheral parasitology smear negative - Continue doxycycline 100mg BID - BCx2, flu A, flu B, and throat culture all negative - CT head, neck, abd/pelvis, gallbladder US, and CXR all show no acute abnormalities. - Anti-SLO weakly positive (titer = 200) - Amox 500mg twice daily - Elevated LFTs - Resolved - d/c LFTs L Nasal Pustules - Pt has a hx of recurrent HSV. Some new sexual partners. - Valacyclovir 1g daily x5 days for recurrence - HIV/STI panel - Asthma - UNLOADER OPERATOR albuterol inhaler PRN GERD - UNLOADER OPERATOR Dexlansoprazole DVT Prophylaxis - SCDs Code Status - Full Resident Physician Supervision Note: I was present with the resident physician during the history and exam. I discussed the case with the resident and agree with the findings and plan as documented in the note. Overall, he looks much better when compared to admission. There is a new finding today of the possible HSV pustules around the tip of the nare; the patient reports a history of the same previous, and an outbreak at this point would not be surprising given he is recovering from acute illness. The cause of his illness is still not clear -pulmonary line was positive but though a confirmatory test is pending. The patient reported a sore throat as the initial symptom and this would be unusual for Lyme. A sore throat and myalgias would not be atypical for an adult with strep -this being said his rapid strep and subsequent culture were negative, although his ASO titer was just barely positive. Ehrlichiosis/anaplasmosis seems unlikely given that the peripheral smear is negative and the patient does not have the transaminitis nor the thrombocytopenia that would be seen with these infections. I did discuss with the patient that other viral illnesses, specifically adenovirus and coxsackievirus, can present as such. Lastly, acute HIV can present similarly, and will often produce a false positive Lyme screen. Agree with the plan outlined above, summarized as 1) continue doxycycline 100 mg p.o. twice daily given the possibility of Lyme; await confirmatory test. 2) add amoxicillin 500 mg p.o. twice daily; although unlikely, strep infection would fit his symptoms and the downsides of treatment are minimal. 3) add Valtrex for mucocutaneous HSV; the earlier this medication is started the more effective it is. 4) check HIV screen/STI screen. Documented By: Jeff Cardona Continued [facility] stay due to: other (infection) Resident Tracking Resident Involvement: Resident Care Provided Care Provided: Adult Hospital Medicine
[2017-11-10 07:44] VITALS: BP 90/61; PULSE 87; TEMP 36.4; O2SAT 96
[2017-11-10 08:05] LABS: BASO % 0.3 %; BASO ABS # 0.02 K/uL (0-0.2); EOS % 1.4 %; HEMATOCRIT 43.8 % (42-52); HEMOGLOBIN 14.5 g/dL (14.0-18.0); IG# 0.01 K/uL (0.00-0.02); LYMPH % 31.4 %; LYMPH ABS # 2.32 K/uL (1.2-3.4); MEAN CORPUSCULAR HEMOGLOBIN 28.2 pg (25-34); MEAN CORPUSCULAR HGB CONC 33.1 g/dl (32-36); MEAN PLATELET VOLUME 9.9 fL (7.4-10.4); MONO ABS # 0.74 K/uL (0.11-0.59); NEUT % 56.8 %; NEUT ABS # 4.21 K/uL (1.4-6.5); PLATELET COUNT 198 K/uL (130-400); RED CELL DISTRIBUTION WIDTH SD 43.9 fL (36.4-46.3)
[2017-11-10] MEDS: DOXYCYCLINE HYCLATE 100 MG CAP PO SCH ×2 (08:34→20:47)
[2017-11-10 08:37] LABS: ALBUMIN 3.2 gm/dl (3.4-5.0); CALCIUM 8.7 mg/dl (8.5-10.1); CREATININE 0.92 mg/dl (0.60-1.40); TOTAL PROTEIN 7.2 gm/dl (6.4-8.2)
[2017-11-10 09:29] VITALS: BP 102/63; PULSE 78; TEMP 36.7; O2SAT 99
[2017-11-10 15:02] LABS: ANA SCREEN TC 249X NEGATIVE (NEGATIVE)
[2017-11-10 15:44] VITALS: BP 115/77; PULSE 74; TEMP 36.9; O2SAT 98
[2017-11-10] MEDS: AMOXICILLIN 500 MG CAP PO SCH (20:47)
[2017-11-10] MEDS: LORAZEPAM 0.5 MG TAB PO PRN (22:05)
[2017-11-10 22:53] VITALS: BP 112/74; PULSE 74; TEMP 36.4; O2SAT 98
--- NOTE | 2017-11-11 06:42 | Family Medicine Progress Note ---
Progress Note Date of Service Nov 11, 2017.
[2017-11-11 07:22] VITALS: BP 111/74; PULSE 57; TEMP 36.9; O2SAT 100
[2017-11-11] MEDS: DOXYCYCLINE HYCLATE 100 MG CAP PO SCH (08:15)
[2017-11-11] MEDS: AMOXICILLIN 500 MG CAP PO SCH (08:15)
--- NOTE | 2017-11-11 10:57 | Discharge Summary ---
Discharge Summary Date of Service Nov 11, 2017. Discharge Summary Admission Date: Nov 08, 2017 at 00:02 Discharge Date: Nov 11, 2017 Discharge Disposition: Home Principal Diagnosis: SIRS with prerenal azotemia and transaminitis Immunizations: Have You Had Influenza Vaccine: Unknown History of Tetanus Vaccine?: Unknown History of Pneumococcal: Unknown History of Hepatitis B Vaccine: Unknown Discharge Exam Review of Systems: Constitutional: No fever, No chills, No sweats, No weakness, No fatigue Eyes: No worsening of vision ENT: + problem reported (resolving painful lesions in his L nose), No hearing loss, No unusual epistaxis, No nasal symptoms, No sore throat Respiratory: No cough, No sputum, No wheezing, No shortness of breath, No dyspnea on exertion, No dyspnea at rest Cardiovascular: No chest pain Abdomen: No pain, No nausea, No vomiting, No diarrhea, No constipation Musculoskeletal: No joint pain, No muscle pain Genitourinary - Male: No hematuria, No dysuria, No urinary frequency, No urinary urgency Neurologic: No weakness, No numbness/tingling Psychiatric: No depression symptoms Endocrine: No fatigue Integumentary: + problem reported (nose blisters) Physical Exam: General Appearance: WD/WN, no apparent distress Eyes: normal inspection, PERRL, EOMI, sclerae normal, funduscopic exam normal ENT: hearing grossly normal, pharynx normal, + pertinent finding (scattered 1-2mm ulcerations with some crust present in L nare, without pus/exudate.) Neck: supple, no adenopathy, no JVD, no carotid bruits, trachea midline Respiratory/Chest: chest non-tender, lungs clear, normal breath sounds, no respiratory distress, no accessory muscle use Cardiovascular: regular rate, rhythm, no edema, no gallop, no JVD, no murmur , normal peripheral pulses Abdomen / GI: normal bowel sounds, non tender, soft, no organomegaly Extremities: normal inspection, no calf tenderness, normal range of motion, non-tender Neurologic/Psychiatric: alert, normal mood/affect, normal reflexes (Patellar , Bicepts DTR2+ bilat), oriented x 3 Skin: normal color, warm/dry, no rash Lymphatic: no adenopathy Hospital Course Abdirahman Valencia is a 27yo M admitted Nov 11, 2017 with 2 days of fever to 103- 104*F, myalgias, sore throat, with initial workup revealing for leukocytosis with left shift, lyme IgM+, increased creatinine and elevated transaminases. No rashes or erythema migrans was found on history or exam. He was initially treated with vancomycin, ceftriaxone, and doxycycline on admit with BCx2 drawn and followup ehrlichia/anaplasmosis/burgdorferi labs sent. 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 Anti-SLO was weakly positive, given in context of his cough prodrome Amoxicillin 500mg BID was added to his treatment. He had an episode of emesis due to nausea on admission and had difficulty keeping food down, was hydrated with IVFM and was able to tolerate PO the next day. His transaminitis and azotemia improved over the next 48 hours to normal limits. He was afebrile after hopsital day #1 and he leukocytosis resovled. 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 He received two doses of Valacyclovir. Further discussion of sexual history following his rash revealed some high risk exposures with recent screening >1 year ago; HIV, G/C/S screening was performed. HIV was negative. He felt well on day of discharge and reports that his muscle aches, joint pain, and throat pain had completely resolved. Discharged to followup with PCP, with the expectation that if his Lyme titer was negative he could stop taking the doxycycline. Resident Physician Supervision Note: I interviewed and examined the patient. Discussed with the resident physician and agree with findings and plan as documented in the note. Upon examination today, the patient is seated in bed and notes that he feels much better. He has been afebrile for the last 24 hours plus, his myalgias and arthralgias are nearly resolved, and he is tolerating oral food and fluids without nausea or vomiting. The confirmatory Lyme panel is still pending; his clinical course is consistent with that of Lyme with the exception of the sore throat. His ASO titer was mildly positive; his rapid strep and subsequent culture were negative for group A strep. 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 His HIV screen was negative. I discussed with the patient the possible etiologies of his symptoms. Lyme is certainly diagnostic possibility and this may be further validated by a confirmatory Western blot. He has been treated with doxycycline will complete a full course. Strep is a more remote possibility; given the risk of untreated strep he will complete a 10 day course of amoxicillin as well. The third possibility would be a viral illness -adeno or coxsackievirus; explained the testing for these is somewhat difficult in that results would not be available for quite some time, and since there is no specific treatment, the utility of testing is quite low. Follow-up arranged with his primary care physician. Documented By: Jeff Cardona Total Time Spent: Greater than 30 minutes This includes examination of the patient, discharge planning, medication reconciliation, and communication with other providers. Total time spent 40 minutes. Discharge Instructions Please refer to the electronic Patient Visit Report (Discharge Instructions) for additional information. Follow-Up Primary Care Office (Bro Armendariz PA-C, [facility]) Additional Copies To Gordon Armendariz PA-C
[2017-11-11 11:02] VITALS: BP 111/74; PULSE 57; TEMP 36.9; O2SAT 100
[2017-11-11] MEDS ORDERED: AMX500 PO (12:10)
[2017-11-11] MEDS ORDERED: VALA500T60 PO (12:10)
[2017-11-11] MEDS ORDERED: DXY100 PO (12:10)
--- NOTE | 2017-11-11 12:27 | Discharge Instructions ---
Discharge Instructions Date of Service Nov 11, 2017. Admission Reason for Admission: Sirs Associated W/ Organ Dysfunction Discharge Discharge Diagnosis / Problem: SIRS with prerenal azotemia and transaminitis Discharge Goals Goal(s): Improve disease control, Diagnostic testing, Therapeutic intervention , Prevent Disease Progression Activity Recommendations Activity Limitations: resume your previous activity . Instructions / Follow-Up Instructions / Follow-Up You were admitted to the hospital for an infection. You are being discharged on two antibiotics, Amoxacillin and Doxycycline. Please take the amoxacillin 500mg twice daily as directed. Please take the doxycycline 100mg twice daily as directed. An appointment is being scheduled for followup with [facility] within 2 weeks. If you do not hear from them to confirm this appointment please call [facility] [[email or web address]] at . If you develop worsening muscle aches, body aches, joint pain, fever, or rash please call your PCP at [phone], or go to the emergency department if you are concerned. At time of discharge sexually transmitted illness screening labs for Chalmydia, gonorrhea, and syphilis are still pending. Followup confirmation testing for tickborne illness including Lyme are still pending. The results of these tests will be forwarded to your primary care provider. If any of these labs come back abnormal we or your primary care provider will call you. Current Hospital Diet Patient's current hospital diet: Regular Diet Discharge Diet Recommended Diet: Regular Diet Pending Studies Studies pending at discharge: yes List of pending studies: Chlamydia Gonorrhea Syphilis Tick Borne Panel, including Lyme confirmation Medical Emergencies . Who to Call and When: Medical Emergencies: If at any time you feel your situation is an emergency, please call 911 immediately. . Non-Emergent Contact Non-Emergency issues call your: Primary Care Provider . . "Provider Documentation" section prepared by Thai Jones. .
[2017-11-11 15:34] LABS: HEPATITIS A IGM TC 51813E NON-REACTIVE (NON-REACTIVE); HEPATITIS B CORE IGM TC51854R NON-REACTIVE (NON-REACTIVE); HEPATITIS BE ANTIGEN TC 555 Nonreactive; HEPATITIS C VIRAL RNA BY PCR <15 NOT DETECTED IU/ML (<15); HEPATITIS C VIRAL RNA(LOG) PCR <1.18 NOT DETECTED LOG IU/ML (<1.18)
== END 2017-11-11 14:00 | disposition home or self-care (01) | DRG 868 ==
LOC: C.EDB 18:14 → ENRESERV 11-08 00:01 → C.2T 11-08 00:02 → C.4E 11-08 12:34 → ENRESERV 11-08 13:03
PROVIDERS: ADMIT Student in an Organized Health Care Education/Training Program; ATTEND Family Medicine
DX: A69.20 Lyme disease, unspecified (principal); R65.10 Systemic inflammatory response syndrome (SIRS) of non-infectious origin without acute organ dysfunction; B00.89 Other herpesviral infection; R79.89 Other specified abnormal findings of blood chemistry; J34.89 Other specified disorders of nose and nasal sinuses; K21.9 Gastro-esophageal reflux disease without esophagitis; J45.909 Unspecified asthma, uncomplicated; Z79.899 Other long term (current) drug therapy; Z88.8 Allergy status to other drugs, medicaments and biological substances